=== PATIENT | male | born 1955 | race Caucasian/White ===

== ENCOUNTER 2023-03-26 03:53 | Inpatient (IN) | payer MEDICARE ==
--- NOTE | 2023-03-26 04:08 | ED ---
General Adult HPI - General Stated complaint: Abdominal Pain Time Seen by Provider: 03/26/23 04:04 - History of Present Illness Initial comments: This patient is a 67-year-old man who presents with abdominal pain. He states it is somewhat diffuse however greatest in the right upper quadrant. He states that it feels like for or gassy feeling. He states it feels at times like he needs to have a bowel movement but he has not been able to have one over the past day or so. He has not noted worsening factors. He states that sometimes is better when he holds the right upper quadrant of his abdomen. He also had a component of epigastric pain when EMS had gone to pick him up but this was relieved. No change in urination. No nausea or vomiting Onset/Timin -: week(s) Location: abdomen Quality: other (Full) Consistency: colicky Improves with: none Worsens with: none Associated Symptoms: denies other symptoms - Related Data Home Medications Medication Instructions Recorded Confirmed Multivitamin [Men's Multi-Vitamin] 1 tab PO BID 07/12/14 03/26/23 Furosemide [Lasix] 80 mg PO MOWEFR 12/03/14 03/26/23 Warfarin [Coumadin] 7.5 mg PO HS 12/03/14 03/26/23 allopurinoL [Zyloprim] 150 mg PO BID 10/08/15 03/26/23 Atorvastatin [Lipitor] 80 mg PO HS 03/26/23 03/26/23 Clotrimazole Cream [Lotrimin Cream] 1 applic TOPICAL DAILY PRN 03/26/23 03/26/23 Levothyroxine Sodium [Synthroid] 50 mcg PO DAILY 03/26/23 03/26/23 Losartan [Cozaar] 50 mg PO HS 03/26/23 03/26/23 Magnesium Chloride [Mag64] 64 mg PO HS 03/26/23 03/26/23 Magnesium Chloride [Mag64] 128 tab PO DAILY 03/26/23 03/26/23 Metoprolol Succinate (ER) [Toprol 100 mg PO HS 03/26/23 03/26/23 XL] gemfibroziL [Lopid] 600 mg PO BID 03/26/23 03/26/23 metFORMIN HCL 500 mg PO DAILY 03/26/23 03/26/23 metFORMIN HCL [Glucophage] 1,000 mg PO HS 03/26/23 03/26/23 Previous Rx's Medication Instructions Recorded Aspirin EC [Ecotrin Low Dose] 162 mg PO DAILY #30 tablet. 10/11/14 Omeprazole [PriLOSEC] 40 mg PO DAILY #30 capsule. 10/11/14 Dapagliflozin Propanediol [Farxiga] 10 mg PO DAILY #30 tab 03/31/23 Digoxin [Lanoxin] 62.5 mcg PO DAILY #30 tablet 03/31/23 Metoprolol Succinate (ER) [Toprol 50 mg PO DAILY #30 tab 03/31/23 XL] Potassium Chloride [Klor-Con M20] 20 meq PO DAILY #0 03/31/23 Allergies Allergy/AdvReac Type Severity Reaction Status Date / Time No Known Allergies Allergy Verified 03/26/23 08:29 Review of Systems ROS Statement: Those systems with pertinent positive or pertinent negative responses have been documented in the HPI. ROS Other: All systems not noted in ROS Statement are negative. Constitutional: Denies: fever, chills Respiratory: Reports: dyspnea. Denies: cough Cardiovascular: Reports: palpitations. Denies: chest pain, orthopnea, syncope Gastrointestinal: Reports: abdominal pain, nausea, constipation. Denies: vomiting, diarrhea, melena, hematochezia Genitourinary: Denies: dysuria, hematuria, testicular pain Musculoskeletal: Denies: back pain Skin: Denies: rash Neurological: Denies: headache, weakness Past Medical History Past Medical History: Asthma, Cancer, Heart Failure, Diabetes Mellitus, GERD/Reflux, Hyperlipidemia, Hypertension, Skin Disorder, Thyroid Disorder Additional Past Medical History / Comment(s): colon cancer 2006, pvd, heart murmur,hx hiatal hernia, psoriasis, anemia, hx ulcer, gout History of Any Multi-Drug Resistant Organisms: None Reported Past Surgical History: Bowel Resection, Cardiac Valve Replacement, Cholecystectomy, Heart Catheterization, Hernia Repair, Orthopedic Surgery, Tonsillectomy Additional Past Surgical History / Comment(s): LAURA, surgery for hiatal hernia, marisol carpal tunnel, Past Anesthesia/Blood Transfusion Reactions: No Reported Reaction Past Alcohol Use History: Occasional Additional Past Alcohol Use History / Comment(s): QUIT SMOKING 2006, STARTED SMOKING AGE 15 - Past Family History Father Family Medical History: Hypertension, Myocardial Infarction ([place]) Mother Family Medical History: No Reported History General Exam General appearance: alert, in no apparent distress Head exam: Present: atraumatic, normocephalic Eye exam: Present: normal appearance. Absent: scleral icterus, conjunctival injection ENT exam: Present: mucous membranes dry Neck exam: Present: normal inspection Respiratory exam: Present: normal lung sounds bilaterally. Absent: respiratory distress, wheezes, rales, rhonchi, chest wall tenderness Cardiovascular Exam: Present: normal rhythm, tachycardia, systolic murmur. Absent: diastolic murmur, rubs, gallop GI/Abdominal exam: Present: soft. Absent: distended, tenderness, guarding, rebound, rigid, mass Extremities exam: Present: normal inspection, normal capillary refill. Absent: pedal edema, calf tenderness Back exam: Present: normal inspection. Absent: CVA tenderness (R), CVA t enderness (L) Neurological exam: Present: alert Skin exam: Present: warm, dry, intact, normal color. Absent: rash Course Vital Signs 03/26/23 03/26/23 03/26/23 03:55 05:00 06:31 Temperature 97.7 F Pulse Rate 118 H 120 H 121 H Respiratory 28 H 28 H 24 Rate Blood Pressure 113/94 114/76 133/96 O2 Sat by Pulse 95 96 95 Oximetry 03/26/23 11:48 Temperature Pulse Rate 120 H Respiratory 18 Rate Blood Pressure 104/80 O2 Sat by Pulse 96 Oximetry EKG Findings - EKG Comments: EKG Findings:: Underlying rhythm appears to be sinus tachycardia rate 120 with PVCs - EKG Results: EKG: interpreted by ERMD - Blocks, [place], Hypertrophy, ST Abn: AV and intraventricular conduction: intraventricular conduction delay Medical Decision Making - Medical Decision Making This patient is a 67-year-old man presenting with abdominal pain and some dyspnea. The physical exam does reveal patient is tachycardic and the ECG does appear to show paced rhythm approximately 118 bpm. The patient's device is interrogated and the report is pending at this time. The patient workup includes computed tomography scan of the abdomen that does appear to show some possible duodenitis all others question whether this is resolved previous scan. The labs also reveal elevated troponin though she does have chronic elevated troponin levels going back to her labs. The patient will be admitted to have cardiology consultation regarding the tachycardia that appears to be paced, and to have further evaluation treatment of the suspected duodenitis. Was pt. sent in by a medical professional or institution ([facility], [employer], urgent care, hospital, or residential...) When possible be specific @ -[No] Did you speak to anyone other than the patient for history (EMS, parent, family, police, friend...)? What history was obtained from this source @ -[No] Did you review nursing and triage notes (agree or disagree)? Why? @ -[I reviewed and agree with nursing and triage notes] Were old charts reviewed (outside hosp., previous admission, EMS record, old EKG, old radiological studies, urgent care reports/EKG's, residential records)? Report findings @ -[old charts were reviewed] Differential Diagnosis (chest pain, altered mental status, abdominal pain women, abdominal pain men, vaginal bleeding, weakness, fever, dyspnea, syncope, headache, dizziness, GI bleed, back pain, seizure, CVA, palpatations, mental health, musculoskeletal)? @ -[Differential Abdominal Pain Men: Appendicitis, cholecystitis, diverticulosis, ischemic bowel, pancreatitis, hepatitis, UTI, gastroenteritis, AAA, incarcerated hernia, bowel obstruction, constipation, inflammatory bowel, hepatitis, peptic ulcer disease, splenic infarction, perforated viscus, testicular torsion, this is not meant to be an all-inclusive list EKG interpreted by me (3pts min.). @ -[As above] X-rays interpreted by me (1pt min.). @ -[None done] CT interpreted by me (1pt min.). @ -[None done] U/S interpreted by me (1pt. min.). @ -[None done] What testing was considered but not performed or refused? (CT, X-rays, U/S, labs)? Why? @ -[None] What meds were considered but not given or refused? Why? @ -[None] Did you discuss the management of the patient with other professionals (professionals i.e. [facility], [employer]STALL[employer], lab, RT, psych nurse, social welfare administrator, napkin machine operator, teacher, third officer, catalytic case operator)? Give summary @ -[Is discussed with admitting physician Was smoking cessation discussed for >3mins.? @ -[No] Was critical care preformed (if so, how long)? @ -[No] Were there social determinants of health that impacted care today? How? (Homelessness, low income, unemployed, alcoholism, drug addiction, transportation, low edu. Level, literacy, decrease access to med. care, snf, rehab)? @ -[No] Was there de-escalation of care discussed even if they declined (Discuss DNR or withdrawal of care, Hospice)? DNR status @ -[No] What co-morbidities impacted this encounter? (DM, HTN, Smoking, COPD, CAD, Cancer, CVA, ARF, Chemo, Hep., AIDS, mental health diagnosis, sleep apnea, morbid obesity)? @ -[None] Was patient admitted / discharged? Hospital course, mention meds given and route, prescriptions, significant lab abnormalities, going to OR and other pertinent info. @ -[The patient is admitted to have cardiology consultation given the persistent tachycardia and the above normal range troponin Undiagnosed new problem with uncertain prognosis? @ -[No] Drug Therapy requiring intensive monitoring for toxicity (Heparin, Nitro, Insulin, Cardizem)? @ -[No] Were any procedures done? @ -[No] Diagnosis/symptom? @ -[Acute abdominal pain, suspect due to acute duodenitis Acute tachycardia arrhythmia Elevated troponin I probably secondary to tachyarrhythmia Acute, or Chronic, or Acute on Chronic? @ -[Acute Uncomplicated (without systemic symptoms) or Complicated (systemic symptoms)? @ -[Uncomplicated Side effects of treatment? @ -[No] Exacerbation, Progression, or Severe Exacerbation? @ -[No] Poses a threat to life or bodily function? How? (Chest pain, [place], [place], pneumonia, PE, COPD, DKA, ARF, appy, cholecystitis, CVA, Diverticulitis, Homicidal, Suicidal, threat to staff... and all critical care pts) @ -[Uncertain, pending cardiology evaluation - Lab Data Result diagrams: 03/30/23 11:38 03/31/23 10:43 Lab Results 03/26/23 03/26/23 03/26/23 Range/Units 04:18 04:18 04:18 WBC 13.4 H (3.8-10.6) k/uL RBC 3.70 L (4.30-5.90) m/uL Hgb 11.5 L (13.0-17.5) gm/dL Hct 34.4 L (39.0-53.0) % MCV 92.9 (80.0-100.0) fL MCH 31.1 (25.0-35.0) pg MCHC 33.5 (31.0-37.0) g/dL RDW 13.8 (11.5-15.5) % Plt Count 315 (150-450) k/uL MPV 8.7 Neutrophils % 85 % Lymphocytes % 8 % Monocytes % 4 % Eosinophils % 1 % Basophils % 0 % Neutrophils # 11.4 H (1.3-7.7) k/uL Lymphocytes # 1.1 (1.0-4.8) k/uL Monocytes # 0.6 (0-1.0) k/uL Eosinophils # 0.1 (0-0.7) k/uL Basophils # 0.0 (0-0.2) k/uL PT (9.0-12.0) sec INR (<1.2) D-Dimer (<0.60) mg/L FEU Sodium 138 (137-145) mmol/L Potassium 3.9 (3.5-5.1) mmol/L Chloride 99 (98-107) mmol/L Carbon Dioxide 27 (22-30) mmol/L Anion Gap 12 mmol/L BUN 28 H (9-20) mg/dL Creatinine 1.51 H (0.66-1.25) mg/dL Est GFR (CKD-EPI)AfAm 56 (>60 ml/min/1.73 sqM) Est GFR (CKD-EPI)NonAf 48 (>60 ml/min/1.73 sqM) Glucose 191 H (74-99) mg/dL Plasma Lactic Acid Murtaza (0.7-2.0) mmol/L Calcium 8.9 (8.4-10.2) mg/dL Total Bilirubin 0.4 (0.2-1.3) mg/dL AST 27 (17-59) U/L ALT 20 (4-49) U/L Alkaline Phosphatase 199 H (38-126) U/L Troponin I (0.000-0.034) ng/mL NT-Pro-B Natriuret Pep pg/mL Total Protein 6.9 (6.3-8.2) g/dL Albumin 4.3 (3.5-5.0) g/dL Amylase 72 (30-110) U/L Lipase 108 (23-300) U/L Urine Color Yellow Urine Appearance Clear (Clear) Urine pH 5.5 (5.0-8.0) Ur Specific [place] 1.014 (1.001-1.035) Urine Protein 2+ H (Negative) Urine Glucose (UA) Negative (Negative) Urine Ketones Negative (Negative) Urine Blood Negative (Negative) Urine Nitrite Negative (Negative) Urine Bilirubin Negative (Negative) Urine Urobilinogen <2.0 (<2.0) mg/dL Ur Leukocyte Esterase Negative (Negative) Urine RBC <1 (0-5) /hpf Urine WBC 1 (0-5) /hpf Hyaline Casts 5 H (0-2) /lpf Urine Mucus Rare H (None) /hpf Influenza Type A (PCR) (Not Detectd) Influenza Type B (PCR) (Not Detectd) RSV (PCR) (Not Detectd) SARS-CoV-2 (PCR) (Not Detectd) 03/26/23 03/26/23 03/26/23 Range/Units 04:18 04:18 04:23 WBC (3.8-10.6) k/uL RBC (4.30-5.90) m/uL Hgb (13.0-17.5) gm/dL Hct (39.0-53.0) % MCV (80.0-100.0) fL MCH (25.0-35.0) pg MCHC (31.0-37.0) g/dL RDW (11.5-15.5) % Plt Count (150-450) k/uL MPV Neutrophils % % Lymphocytes % % Monocytes % % Eosinophils % % Basophils % % Neutrophils # (1.3-7.7) k/uL Lymphocytes # (1.0-4.8) k/uL Monocytes # (0-1.0) k/uL Eosinophils # (0-0.7) k/uL Basophils # (0-0.2) k/uL PT (9.0-12.0) sec INR (<1.2) D-Dimer 0.27 (<0.60) mg/L FEU Sodium (137-145) mmol/L Potassium (3.5-5.1) mmol/L Chloride (98-107) mmol/L Carbon Dioxide (22-30) mmol/L Anion Gap mmol/L BUN (9-20) mg/dL Creatinine (0.66-1.25) mg/dL Est GFR (CKD-EPI)AfAm (>60 ml/min/1.73 sqM) Est GFR (CKD-EPI)NonAf (>60 ml/min/1.73 sqM) Glucose (74-99) mg/dL Plasma Lactic Acid Murtaza 1.6 (0.7-2.0) mmol/L Calcium (8.4-10.2) mg/dL Total Bilirubin (0.2-1.3) mg/dL AST (17-59) U/L ALT (4-49) U/L Alkaline Phosphatase (38-126) U/L Troponin I 0.078 H* (0.000-0.034) ng/mL NT-Pro-B Natriuret Pep pg/mL Total Protein (6.3-8.2) g/dL Albumin (3.5-5.0) g/dL Amylase (30-110) U/L Lipase (23-300) U/L Urine Color Urine Appearance (Clear) Urine pH (5.0-8.0) Ur Specific [place] (1.001-1.035) Urine Protein (Negative) Urine Glucose (UA) (Negative) Urine Ketones (Negative) Urine Blood (Negative) Urine Nitrite (Negative) Urine Bilirubin (Negative) Urine Urobilinogen (<2.0) mg/dL Ur Leukocyte Esterase (Negative) Urine RBC (0-5) /hpf Urine WBC (0-5) /hpf Hyaline Casts (0-2) /lpf Urine Mucus (None) /hpf Influenza Type A (PCR) (Not Detectd) Influenza Type B (PCR) (Not Detectd) RSV (PCR) (Not Detectd) SARS-CoV-2 (PCR) (Not Detectd) 03/26/23 03/26/23 03/26/23 Range/Units 04:23 05:00 09:42 WBC (3.8-10.6) k/uL RBC (4.30-5.90) m/uL Hgb (13.0-17.5) gm/dL Hct (39.0-53.0) % MCV (80.0-100.0) fL MCH (25.0-35.0) pg MCHC (31.0-37.0) g/dL RDW (11.5-15.5) % Plt Count (150-450) k/uL MPV Neutrophils % % Lymphocytes % % Monocytes % % Eosinophils % % Basophils % % Neutrophils # (1.3-7.7) k/uL Lymphocytes # (1.0-4.8) k/uL Monocytes # (0-1.0) k/uL Eosinophils # (0-0.7) k/uL Basophils # (0-0.2) k/uL PT 25.0 H (9.0-12.0) sec INR 2.6 H (<1.2) D-Dimer (<0.60) mg/L FEU Sodium (137-145) mmol/L Potassium (3.5-5.1) mmol/L Chloride (98-107) mmol/L Carbon Dioxide (22-30) mmol/L Anion Gap mmol/L BUN (9-20) mg/dL Creatinine (0.66-1.25) mg/dL Est GFR (CKD-EPI)AfAm (>60 ml/min/1.73 sqM) Est GFR (CKD-EPI)NonAf (>60 ml/min/1.73 sqM) Glucose (74-99) mg/dL Plasma Lactic Acid Murtaza (0.7-2.0) mmol/L Calcium (8.4-10.2) mg/dL Total Bilirubin (0.2-1.3) mg/dL AST (17-59) U/L ALT (4-49) U/L Alkaline Phosphatase (38-126) U/L Troponin I (0.000-0.034) ng/mL NT-Pro-B Natriuret Pep 2210 pg/mL Total Protein (6.3-8.2) g/dL Albumin (3.5-5.0) g/dL Amylase (30-110) U/L Lipase (23-300) U/L Urine Color Urine Appearance (Clear) Urine pH (5.0-8.0) Ur Specific [place] (1.001-1.035) Urine Protein (Negative) Urine Glucose (UA) (Negative) Urine Ketones (Negative) Urine Blood (Negative) Urine Nitrite (Negative) Urine Bilirubin (Negative) Urine Urobilinogen (<2.0) mg/dL Ur Leukocyte Esterase (Negative) Urine RBC (0-5) /hpf Urine WBC (0-5) /hpf Hyaline Casts (0-2) /lpf Urine Mucus (None) /hpf Influenza Type A (PCR) Not Detected (Not Detectd) Influenza Type B (PCR) Not Detected (Not Detectd) RSV (PCR) Not Detected (Not Detectd) SARS-CoV-2 (PCR) Not Detected (Not Detectd) 03/26/23 03/26/23 Range/Units 11:06 14:20 WBC (3.8-10.6) k/uL RBC (4.30-5.90) m/uL Hgb (13.0-17.5) gm/dL Hct (39.0-53.0) % MCV (80.0-100.0) fL MCH (25.0-35.0) pg MCHC (31.0-37.0) g/dL RDW (11.5-15.5) % Plt Count (150-450) k/uL MPV Neutrophils % % Lymphocytes % % Monocytes % % Eosinophils % % Basophils % % Neutrophils # (1.3-7.7) k/uL Lymphocytes # (1.0-4.8) k/uL Monocytes # (0-1.0) k/uL Eosinophils # (0-0.7) k/uL Basophils # (0-0.2) k/uL PT (9.0-12.0) sec INR (<1.2) D-Dimer (<0.60) mg/L FEU Sodium (137-145) mmol/L Potassium (3.5-5.1) mmol/L Chloride (98-107) mmol/L Carbon Dioxide (22-30) mmol/L Anion Gap mmol/L BUN (9-20) mg/dL Creatinine (0.66-1.25) mg/dL Est GFR (CKD-EPI)AfAm (>60 ml/min/1.73 sqM) Est GFR (CKD-EPI)NonAf (>60 ml/min/1.73 sqM) Glucose (74-99) mg/dL Plasma Lactic Acid Murtaza (0.7-2.0) mmol/L Calcium (8.4-10.2) mg/dL Total Bilirubin (0.2-1.3) mg/dL AST (17-59) U/L ALT (4-49) U/L Alkaline Phosphatase (38-126) U/L Troponin I 0.066 H* 0.072 H* (0.000-0.034) ng/mL NT-Pro-B Natriuret Pep pg/mL Total Protein (6.3-8.2) g/dL Albumin (3.5-5.0) g/dL Amylase (30-110) U/L Lipase (23-300) U/L Urine Color Urine Appearance (Clear) Urine pH (5.0-8.0) Ur Specific [place] (1.001-1.035) Urine Protein (Negative) Urine Glucose (UA) (Negative) Urine Ketones (Negative) Urine Blood (Negative) Urine Nitrite (Negative) Urine Bilirubin (Negative) Urine Urobilinogen (<2.0) mg/dL Ur Leukocyte Esterase (Negative) Urine RBC (0-5) /hpf Urine WBC (0-5) /hpf Hyaline Casts (0-2) /lpf Urine Mucus (None) /hpf Influenza Type A (PCR) (Not Detectd) Influenza Type B (PCR) (Not Detectd) RSV (PCR) (Not Detectd) SARS-CoV-2 (PCR) (Not Detectd) Disposition Clinical Impression: Elevated troponin, Abdominal pain, Duodenitis Disposition: ADMITTED IP TO THIS HOSP
[2023-03-26 04:41] LABS: Basophils % (A) 0 %; Eosinophils # (A) 0.1 k/uL (0-0.7); Eosinophils % (A) 1 %; HCT 34.4 % (39.0-53.0); HGB 11.5 gm/dL (13.0-17.5); Lymphocytes # (A) 1.1 k/uL (1.0-4.8); Lymphocytes % (A) 8 %; MCH 31.1 pg (25.0-35.0); MCHC 33.5 g/dL (31.0-37.0); MCV 92.9 fL (80.0-100.0); Mean Platelet Volume 8.7; Monocytes # (A) 0.6 k/uL (0-1.0); Monocytes % (A) 4 %; Neutrophils # (A) 11.4 k/uL (1.3-7.7); Neutrophils % (A) 85 %; Platelet Count 315 k/uL (150-450); RDW 13.8 % (11.5-15.5); WBC 13.4 k/uL (3.8-10.6)
[2023-03-26 04:54] LABS: Albumin 4.3 g/dL (3.5-5.0); Calcium 8.9 mg/dL (8.4-10.2); Potassium 3.9 mmol/L (3.5-5.1); Total Bilirubin 0.4 mg/dL (0.2-1.3); Total Protein 6.9 g/dL (6.3-8.2)
--- NOTE | 2023-03-26 05:17 | XR ---
EXAMINATION TYPE: XR chest 2V DATE OF EXAM: 03/26/2023 COMPARISON: Chest x-ray November 27, 2015 HISTORY: Dyspnea. TECHNIQUE: Frontal and lateral views of the chest are obtained. FINDINGS: There is patchy bibasilar opacities. Persistent cardiomegaly with single lead pacemaker/de fibrillator. Overlying sternal wires redemonstrated. The osseous structures are intact. IMPRESSION: Cardiomegaly with patchy bibasilar opacities favoring atelectasis is redemonstrated.
--- NOTE | 2023-03-26 07:06 | CT ---
EXAMINATION TYPE: CT abdomen pelvis wo con DATE OF EXAM: 03/26/2023 HISTORY: Abdominal pain with pressure x 1 week. No change in bowel habits CT DLP: 1070.7 mGycm. Automated Exposure Control for Dose Reduction was Utilized. TECHNIQUE: CT scan of the abdomen and pelvis is performed without oral or IV contrast. COMPARISON: Prior CT July 12, 2014 FINDINGS: Within the limitations of a non-contrast study, the following observations are made. LUNG BASES: Mild cardiomegaly with right-sided pacemaker or defibrillator lead is now present. Calcif ication at level of the mitral valve is again seen. LIVER/GB: Cholecystectomy clips are redemonstrated. Mild hepatomegaly redemonstrated. PANCREAS: No significant abnormality is seen. SPLEEN: No significant abnormality is seen. ADRENALS: No significant abnormality is seen. KIDNEYS: No renal calculi or hydronephrosis is seen bilaterally. No intraluminal calculus in the blad stefany. BOWEL: Slightly suboptimal evaluation without enteric contrast. No suspicious small or large bowel di latation. Sigmoid colonic diverticula. No CT evidence for acute diverticulitis. Surgical change from proximal partial colectomy and small bowel anastomosis is redemonstrated. GENITAL ORGANS: No gross abnormality seen. LYMPH NODES: No greater than 1cm abdominal or pelvic lymph nodes are appreciated. OSSEOUS STRUCTURES: No significant abnormality is seen. OTHER: Moderate to severe calcified plaque of the aorta extends into branch vessels. Persistent ill-defined fluid and fat stranding adjacent to second portion of duodenal sweep has simil ar appearance to prior CT. IMPRESSION: No bowel obstruction. Possible focal inflammatory change or duodenitis. Differential incl udes infectious and/or inflammatory etiologies. Correlate clinically. No acute findings otherwise see n on noncontrast CT.
[2023-03-26] MEDS ORDERED: NITROGLYCERIN SL TABS 0.4 MG TAB SUBLINGUAL PRN (08:24)
[2023-03-26] MEDS: SODIUM CHLORIDE 0.9% 1,000 ML IV SCH (09:04)
[2023-03-26] MEDS ORDERED: ASPIRIN 81 MG PO SCH (09:30)
[2023-03-26] MEDS ORDERED: FENOFIBRATE 160 MG TAB PO SCH (09:30)
[2023-03-26] MEDS ORDERED: FUROSEMIDE 80 MG TAB PO SCH (09:30)
[2023-03-26] MEDS: MAGNESIUM OXIDE 400 MG TAB PO SCH ×3 (09:39→22:05)
[2023-03-26] MEDS: allopurinoL 100 MG TAB PO SCH ×2 (09:40→22:05)
[2023-03-26] MEDS: PANTOPRAZOLE 40 MG TABLET PO SCH (09:41)
[2023-03-26] MEDS: metFORMIN 500 MG TAB PO SCH ×2 (09:42→22:05)
[2023-03-26] MEDS: LEVOTHYROXINE 50 MCG TAB PO SCH (09:42)
[2023-03-26] MEDS: POTASSIUM CHLORIDE ER 20 MEQ TAB.ER PO SCH ×2 (09:43→22:06)
[2023-03-26] MEDS: MULTIVITAMINS, THERA 1 EACH TAB PO SCH ×2 (09:43→22:06)
[2023-03-26 10:04] LABS: INR 2.6 (<1.2)
[2023-03-26 11:40] LABS: Appearance,Urine Clear (Clear); Bilirubin,Urine Negative (Negative); Blood,Urine Negative (Negative); Color,Urine Yellow; Glucose,Urine (UA) Negative (Negative); Hyaline Casts,Urine 5 /lpf (0-2); Ketones,Urine Negative (Negative); Leukocyte Esterase,Urine Negative (Negative); Mucus,Urine Rare /hpf; Nitrite,Urine Negative (Negative); PH, Urine 5.5 (5.0-8.0); Protein,Urine 2+ (Negative); RBC,Urine <1 /hpf (0-5); Specific Gravity,Urine 1.014 (1.001-1.035); Urobilinogen,Urine <2.0 mg/dL (<2.0); WBC,Urine 1 /hpf (0-5)
[2023-03-26] MEDS ORDERED: METOPROLOL SUCCINATE (ER) 50 MG TAB.ER.24H PO STA (12:22)
[2023-03-26] MEDS ORDERED: FUROSEMIDE 10 MG/ML 4 ML VIAL IV SCH (12:30)
--- NOTE | 2023-03-26 12:30 | P.CRDCN ---
History of Present Illness Consult date: 03/26/23 History of present illness: HISTORY OF PRESENT ILLNESS: This is a 67-year-old male with a past medical history significant for permanent atrial fibrillation, hypertension, hyperlipidemia, peripheral arterial disease with previous intervention of the left leg, aortic stenosis and regurgitation with previous aortic valve replacement, congestive heart failure, and cardiomyopathy. Patient follows in the office with Dr. Mendoza. We have been asked to see the patient in consultation for elevated troponins. Patient examined at the bedside. Patient presented to the hospital with a chief complaint of abdominal pain. He also reports increased shortness of breath with exertion. He states he is usually short of breath but it is worse than normal. He reports mild lower extremity edema, usually worse on the left. No chest pain or pressure. No nausea or vomiting. Reports diarrhea, which is chronic for patient. No dizziness or palpitations. It is noted that the patient was notified by the cardiology office via telephone on 03/23/2023 regarding an episode of atrial fibrillation with RVR that was reported from his device on 03/19/2023. The patient denied feeling anything at that time. He told the cardiology office he was moving heavy objects and doing yard work and felt weak and short of breath. The patient received ATP therapy. * EKG reveals atrial fibrillation with RVR * Chest xray cardiomegaly with patchy bibasilar opacities favoring atelectasis * CT abdomen and pelvis revealed no evidence of bowel ejection. Possible focal inflammatory changes or duodenitis. Differential includes infectious and/or inflammatory etiologies. No acute findings otherwise seen on noncontrast CT. * Laboratory data: WBC 13.4. Hemoglobin 11.5. Blood count 315. D-dimer 0.27. INR 2.6. Sodium 138. Potassium 3.9. BUN 28. Creatinine 1.51. Troponin 0. 078. ProBNP 2210. * Current home cardiac medications include Lasix 80 mg Wednesday, losartan 50 mg at night, Zaroxolyn 5 mg at night, aspirin 162 mg daily, warfarin 7.5 mg at night, metoprolol succinate 100 mg at night, Lipitor 80 mg at night, Lopid 600 mg twice a day * Most recent echocardiogram obtained in October 2022 revealed ejection fraction 30-35% with AV prosthesis noted, moderate MR, mild TR * Cardiac catheterization history: 2013 revealing mild nonobstructive coronary artery disease REVIEW OF SYSTEMS: At the time of my exam: CONSTITUTIONAL: Denies fever or chills. HEENT: Denies blurred vision, vision changes, or eye pain. Denies hemoptysis CARDIOVASCULAR: Denies chest pain. Denies orthopnea. Denies PND. Denies palpitations RESPIRATORY: Denies shortness of breath. GASTROINTESTINAL: Denies abdominal pain. Denies nausea or vomiting. HEMATOLOGIC: Denies bleeding disorders. GENITOURINARY: Denies any blood in urine. SKIN: Denies pruitis. Denies rash. PHYSICAL EXAM: VITAL SIGNS: Reviewed. GENERAL: Well-developed in no acute distress. HEENT: Head is normocephalic. Pupils are equal, round. Sclerae anicteric. Mucous membranes of the mouth are moist. Neck supple. No JVD or thyromegaly LUNGS: Respirations even and unlabored. Lungs diminished at the bases. HEART: Tachycardic. Irregular rate and rhythm. S1 and S2 heard. Soft systolic murmur noted. ABDOMEN: Soft. Nondistended. Nontender. EXTREMITIES: Normal range of motion. No clubbing or cyanosis. Peripheral pulses intact. Minimal lower extremity edema NEUROLOGIC: Awake and alert. Oriented x 3. ASSESSMENT: Abdominal pain Leukocytosis Acute kidney injury Acute on chronic congestive heart failure with reduced EF Abnormal troponin, not suggestive of ACS Permanent atrial fibrillation with RVR on admission History of aortic stenosis with bioprosthetic aortic valve replacement Nonischemic cardiomyopathy, 3035% Mild nonobstructive coronary artery disease, per cardiac catheterization in 2013 Peripheral arterial disease with previous intervention of left lower extremity Hypertension Hyperlipidemia Diabetes PLAN: Obtain 2D echo to assess cardiac structure and function Begin IV lasix 40mg IV Q12 hours for 24 hours Daily weights, accurate I&O, and monitoring of kidney function Discontinue aspirin Continue Coumadin. Monitor INR Given additional dose of metoprolol succinate 50 mg 1 now Continue telemetry monitoring Further recommendations pending patient's course Nurse practitioner note has been reviewed by physician. Signing provider agrees with the documented findings, assessment, and plan of care. Past Medical History Past Medical History: Asthma, Cancer, Heart Failure, Diabetes Mellitus, GERD/Reflux, Hyperlipidemia, Hypertension, Skin Disorder, Thyroid Disorder Additional Past Medical History / Comment(s): colon cancer 2007, pvd, heart murmur,hx hiatal hernia, psoriasis, anemia, hx ulcer, gout History of Any Multi-Drug Resistant Organisms: None Reported Past Surgical History: Bowel Resection, Cardiac Valve Replacement, Cholecystectomy, Heart Catheterization, Hernia Repair, Orthopedic Surgery, Tonsillectomy Additional Past Surgical History / Comment(s): LAURA, surgery for hiatal hernia, marisol carpal tunnel, Past Anesthesia/Blood Transfusion Reactions: No Reported Reaction Past Alcohol Use History: Occasional Additional Past Alcohol Use History / Comment(s): QUIT SMOKING 2006, STARTED SMOKING AGE 15 - Past Family History Father Family Medical History: Hypertension, Myocardial Infarction ([place]) Mother Family Medical History: No Reported History Medications and Allergies Home Medications Medication Instructions Recorded Confirmed Type Multivitamin [Men's Multi-Vitamin] 1 tab PO BID 07/12/14 03/26/23 History Aspirin EC [Ecotrin Low Dose] 162 mg PO DAILY #30 tablet. 10/11/14 03/26/23 Rx Omeprazole [PriLOSEC] 40 mg PO DAILY #30 capsule. 10/11/14 03/26/23 Rx Furosemide [Lasix] 80 mg PO MOWEFR 12/03/14 03/26/23 History Warfarin [Coumadin] 7.5 mg PO HS 12/03/14 03/26/23 History allopurinoL [Zyloprim] 150 mg PO BID 10/08/15 03/26/23 History Atorvastatin [Lipitor] 80 mg PO HS 03/26/23 03/26/23 History Clotrimazole Cream [Lotrimin Cream] 1 applic TOPICAL DAILY PRN 03/26/23 03/26/23 History Levothyroxine Sodium [Synthroid] 50 mcg PO DAILY 03/26/23 03/26/23 History Losartan [Cozaar] 50 mg PO HS 03/26/23 03/26/23 History Magnesium Chloride [Mag64] 64 mg PO HS 03/26/23 03/26/23 History Magnesium Chloride [Mag64] 128 tab PO DAILY 03/26/23 03/26/23 History Metoprolol Succinate (ER) [Toprol 100 mg PO HS 03/26/23 03/26/23 History Xl] Potassium Chloride [Klor-Con M20] 20 meq PO BID 03/26/23 03/26/23 History gemfibroziL [Lopid] 600 mg PO BID 03/26/23 03/26/23 History metFORMIN HCL 500 mg PO DAILY 03/26/23 03/26/23 History metFORMIN HCL [Glucophage] 1,000 mg PO HS 03/26/23 03/26/23 History metOLazone 5 mg PO HS 03/26/23 03/26/23 History Allergies Allergy/AdvReac Type Severity Reaction Status Date / Time No Known Allergies Allergy Verified 03/26/23 08:29 Physical Exam Vitals: Vital Signs Temp Pulse Resp BP Pulse Ox 03/26/23 06:31 121 H 24 133/96 95 03/26/23 05:00 120 H 28 H 114/76 96 03/26/23 03:55 97.7 F 118 H 28 H 113/94 95 Intake and Output 03/25/23 03/26/23 03/26/23 22:59 06:59 14:59 Other: Weight 110.677 kg Results 03/26/23 04:18 03/26/23 04:18 Cardiac Enzymes 03/26/23 03/26/23 Range/Units 04:18 04:18 AST 27 (17-59) U/L Troponin I 0.078 H* (0.000-0.034) ng/mL Coagulation 03/26/23 Range/Units 09:42 PT 25.0 H (9.0-12.0) sec CBC 03/26/23 Range/Units 04:18 WBC 13.4 H (3.8-10.6) k/uL RBC 3.70 L (4.30-5.90) m/uL Hgb 11.5 L (13.0-17.5) gm/dL Hct 34.4 L (39.0-53.0) % Plt Count 315 (150-450) k/uL Comprehensive Metabolic Panel 03/26/23 Range/Units 04:18 Sodium 138 (137-145) mmol/L Potassium 3.9 (3.5-5.1) mmol/L Chloride 99 (98-107) mmol/L Carbon Dioxide 27 (22-30) mmol/L BUN 28 H (9-20) mg/dL Creatinine 1.51 H (0.66-1.25) mg/dL Glucose 191 H (74-99) mg/dL Calcium 8.9 (8.4-10.2) mg/dL AST 27 (17-59) U/L ALT 20 (4-49) U/L Alkaline Phosphatase 199 H (38-126) U/L Total Protein 6.9 (6.3-8.2) g/dL Albumin 4.3 (3.5-5.0) g/dL Current Medications Generic Name Dose Route Start Last Admin Trade Name Freq PRN Reason Stop Dose Admin Allopurinol 150 mg 03/26/23 09:30 03/26/23 09:40 Allopurinol 100 Mg Tab PO 150 mg BID ANDREW Administration Aspirin 162 mg 03/26/23 09:30 03/26/23 09:41 Aspirin 81 Mg PO Not Given DAILY [facility] Atorvastatin Calcium 80 mg 03/26/23 21:00 Atorvastatin 80 Mg Tab PO HS [facility] Fenofibrate 160 mg 03/26/23 09:30 03/26/23 09:42 Fenofibrate 160 Mg Tab PO 160 mg DAILY ANDREW Administration Furosemide 80 mg 03/26/23 09:30 03/26/23 09:38 Furosemide 80 Mg Tab PO 80 mg MoWeFr@0900 ANDREW Administration Sodium Chloride 1,000 mls @ 20 mls/hr 03/26/23 08:30 03/26/23 09:04 Saline 0.9% IV 20 mls/hr .Q24H ANDREW Administration Levothyroxine Sodium 50 mcg 03/26/23 09:30 03/26/23 09:42 Levothyroxine 50 Mcg Tab PO 50 mcg DAILY@0630 ANDREW Administration Losartan Potassium 50 mg 03/26/23 21:00 Losartan 50 Mg Tab PO HS [facility] Magnesium Oxide 400 mg 03/26/23 21:00 Magnesium Oxide 400 Mg Tab PO HS [facility] Magnesium Oxide 400 mg 03/26/23 09:30 03/26/23 09:43 Magnesium Oxide 400 Mg Tab PO 400 mg DAILY ANDREW Administration Metformin HCl 1,000 mg 03/26/23 21:00 Metformin 500 Mg Tab PO HS [facility] Metformin HCl 500 mg 03/26/23 09:30 03/26/23 09:42 Metformin 500 Mg Tab PO 500 mg DAILY ANDREW Administration Metolazone 5 mg 03/26/23 21:00 Metolazone 5 Mg Tab PO HS [facility] Metoprolol Succinate 100 mg 03/26/23 21:00 Metoprolol Succinate (Er) 100 Mg Tab.Er.24h PO HS [facility] Multivitamins 1 each 03/26/23 09:30 03/26/23 09:43 Multivitamins, Thera 1 Each Tab PO 1 each BID ANDREW Administration Nitroglycerin 0.4 mg 03/26/23 08:24 Nitroglycerin Sl Tabs 0.4 Mg Tab SUBLINGUAL Q5M PRN Chest Pain Pantoprazole Sodium 40 mg 03/26/23 09:30 03/26/23 09:41 Pantoprazole 40 Mg Tablet PO 40 mg AC-[id number] ANDREW Administration Potassium Chloride 20 meq 03/26/23 09:30 03/26/23 09:43 Potassium Chloride Er 20 Meq Tab.Er PO 20 meq BID ANDREW Administration Warfarin Sodium 7.5 mg 03/26/23 21:00 Warfarin 7.5 Mg Tab PO HS [facility] Protocol Intake and Output 03/25/23 03/26/23 03/26/23 22:59 06:59 14:59 Other: Weight 110.677 kg 03/26/23 04:18 03/26/23 04:18
--- NOTE | 2023-03-26 14:36 | P.HPIM ---
History of Present Illness H&P Date: 03/26/23 Chief Complaint: Short of breath This is a pleasant 67-year-old patient who follows Dr. Pelaez. Chronic stable medical conditions include CAD, CHF, diabetes, GERD, hypertension, hyperlipidemia, hypothyroid, colon cancer treated with resection and radiation treatment, hiatal hernia, psoriatic assess, gout,. Patient presents for about one week getting creasing short of breath. No fever no chills. No cough. Patient has chronic left lower extremity swelling. Also has had some abdominal pain for a week. Bowel movement every day. Decreased appetite. Permanent pacemaker was noted in the ER to be having increased heart rate. Pacemaker check was ordered. No chest pain. No dizziness no lightheadedness. Review of systems: GEN.: Tired, decreased appetite EYES: None HEENT: None NECK: None RESPIRATORY: As above CARDIOVASCULAR: As above GASTROINTESTINAL: None GENITOURINARY: None MUSCULOSKELETAL: None LYMPHATICS: None HEMATOLOGICAL: None PSYCHIATRY: None NEUROLOGICAL: None Past medical history to include: COPD, CAD, CHF, diabetes, GERD, hypertension, hyperlipidemia, psoriasis, thyroid disorder, colon cancer treated with surgery and radiation, PAD, sodium is this, hiatal hernia, peptic ulcer disease, gout, heart valve replacement 2015, pacemaker Social history: Lives alone. Smoked for about 35 years. Stopped in 2006. Alcohol occasionally. Physical examination: VITAL SIGNS: 97.7, 120, 28, 130/94, 95% on 2 L upon presentation GENERAL: BMI 33.1, declining weight awake not in distress. EYES: Pupils equal. Conjunctiva normal. HEENT: External appearance of nose and ears normal, oral cavity grossly normal. NECK: JVD not raised; masses not palpable. HEART: First and second heart sounds are normal; no edema. LUNGS: Respiratory rate normal; clear to auscultation. ABDOMEN: Soft, nontender, liver spleen not palpable, no masses palpable. PSYCH: Alert and oriented x3; mood and affect normal. MUSCULOSKELETAL:No Clubbing/cyanosis;muscles-grossly intact NEUROLOGICAL: Cranial nerves grossly intact; no facial asymmetry, power and sensation grossly intact. LYMPHATICS: No lymph nodes palpable in the axilla and neck INVESTIGATIONS, reviewed in the clinical context: White count 13.4 hemoglobin 11.5 platelets 315 sodium 138 potassium 3.9 BUN 28 creatinine 1.51 Troponin I 0.078, 0.066 ProBNP 2210 UA: Protein 2+, Influenza type A, B, RSV, COVID-19: Not detected EKG tracing personally reviewed by me-atrial flutter/tachycardia with a heart rate of 120 Chest x-ray film personally reviewed by me-cardiomegaly. CT abdomen pelvis: No bowel obstruction. Possible inflammatory changes were duodenitis. Assessment and plan: -Atrial fibrillation/atrial tachycardia, uncontrolled with the patient with pacemaker Precipitating CHF Additional dose of Lopressor given by cardiology. Cardiology consulted. Telemetry. -Acute on chronic congestive heart failure. EF not known IV Lasix. Pending 2-D echo -Chronic kidney disease stage III likely nephrosclerosis Patient's creatinine was 1.86 in 2016 -Troponin leak likely from uncontrolled atrial arrhythmia. Acute coronary syndrome unlikely in the setting of CK D -Hypothyroid Synthroid 50 g -Coumadin monitoring Follow with pharmacy -GERD Prilosec 40 mg -Chronic gout Allopurinol. -Hyperlipidemia Lipitor, Lopid -Diabetes mellitus type 2 on oral hypoglycemic Glucophage. Follow Accu-Cheks with sliding scale Given the complexity and severity of patient's condition expect the patient to be in the hospital at least for 2 overnights Discussed with patient Past Medical History Past Medical History: Asthma, Cancer, Heart Failure, Diabetes Mellitus, GERD/Reflux, Hyperlipidemia, Hypertension, Skin Disorder, Thyroid Disorder Additional Past Medical History / Comment(s): colon cancer 2007, pvd, heart murmur,hx hiatal hernia, psoriasis, anemia, hx ulcer, gout History of Any Multi-Drug Resistant Organisms: None Reported Past Surgical History: Bowel Resection, Cardiac Valve Replacement, Cholecystectomy, Heart Catheterization, Hernia Repair, Orthopedic Surgery, To nsillectomy Additional Past Surgical History / Comment(s): LAURA, surgery for hiatal hernia, marisol carpal tunnel, Past Anesthesia/Blood Transfusion Reactions: No Reported Reaction Past Alcohol Use History: Occasional Additional Past Alcohol Use History / Comment(s): QUIT SMOKING 2006, STARTED SMOKING AGE 15 - Past Family History Father Family Medical History: Hypertension, Myocardial Infarction ([place]) Mother Family Medical History: No Reported History Medications and Allergies Home Medications Medication Instructions Recorded Confirmed Type Multivitamin [Men's Multi-Vitamin] 1 tab PO BID 07/12/14 03/26/23 History Aspirin EC [Ecotrin Low Dose] 162 mg PO DAILY #30 tablet. 10/11/14 03/26/23 Rx Omeprazole [PriLOSEC] 40 mg PO DAILY #30 capsule. 10/11/14 03/26/23 Rx Furosemide [Lasix] 80 mg PO MOWEFR 12/03/14 03/26/23 History Warfarin [Coumadin] 7.5 mg PO HS 12/03/14 03/26/23 History allopurinoL [Zyloprim] 150 mg PO BID 10/08/15 03/26/23 History Atorvastatin [Lipitor] 80 mg PO HS 03/26/23 03/26/23 History Clotrimazole Cream [Lotrimin Cream] 1 applic TOPICAL DAILY PRN 03/26/23 03/26/23 History Levothyroxine Sodium [Synthroid] 50 mcg PO DAILY 03/26/23 03/26/23 History Losartan [Cozaar] 50 mg PO HS 03/26/23 03/26/23 History Magnesium Chloride [Mag64] 64 mg PO HS 03/26/23 03/26/23 History Magnesium Chloride [Mag64] 128 tab PO DAILY 03/26/23 03/26/23 History Metoprolol Succinate (ER) [Toprol 100 mg PO HS 03/26/23 03/26/23 History Xl] Potassium Chloride [Klor-Con M20] 20 meq PO BID 03/26/23 03/26/23 History gemfibroziL [Lopid] 600 mg PO BID 03/26/23 03/26/23 History metFORMIN HCL 500 mg PO DAILY 03/26/23 03/26/23 History metFORMIN HCL [Glucophage] 1,000 mg PO HS 03/26/23 03/26/23 History metOLazone 5 mg PO HS 03/26/23 03/26/23 History Allergies Allergy/AdvReac Type Severity Reaction Status Date / Time No Known Allergies Allergy Verified 03/26/23 08:29 Physical Exam Vitals: Vital Signs Temp Pulse Resp BP Pulse Ox 03/26/23 06:31 121 H 24 133/96 95 03/26/23 05:00 120 H 28 H 114/76 96 03/26/23 03:55 97.7 F 118 H 28 H 113/94 95 Intake and Output 03/25/23 03/26/23 03/26/23 22:59 06:59 14:59 Other: Weight 110.677 kg Results CBC & Chem 7: 03/26/23 04:18 03/26/23 04:18 Labs: Abnormal Lab Results - Last 24 Hours (Table) 03/26/23 03/26/23 03/26/23 Range/Units 04:18 04:18 04:18 WBC 13.4 H (3.8-10.6) k/uL RBC 3.70 L (4.30-5.90) m/uL Hgb 11.5 L (13.0-17.5) gm/dL Hct 34.4 L (39.0-53.0) % Neutrophils # 11.4 H (1.3-7.7) k/uL BUN 28 H (9-20) mg/dL Creatinine 1.51 H (0.66-1.25) mg/dL Glucose 191 H (74-99) mg/dL Alkaline Phosphatase 199 H (38-126) U/L Troponin I 0.078 H* (0.000-0.034) ng/mL
[2023-03-26 16:43] LABS: Glucose,Whole Blood 157 mg/dL (70-110)
--- NOTE | 2023-03-26 17:35 | CA ---
Transthoracic Echo Report Name: Behzad Dos Santos Age: 67 Gender: M : 1955 Exam Date: 03/26/2023 14:43 Exam Location: [facility] Ht (in): 72 Wt (lb): 244 Ordering Physician: Nya Garcia Attending/Referring Phys: [id number], [place] [employer] Brennan Ko Procedure CPT: Indications: LV function, elevated trop Cardiac Hx: Technical Quality: Very technically difficult study Contrast 1: Agitated Saline Total Dose (mL): 10 Contrast 2: Lumason Total Dose (mL): 5 MEASUREMENTS (Male / Female) Normal Values 2D ECHO LV Diastolic Diameter PLAX 4.6 cm 4.2 - 5.9 / 3.9 - 5.3 cm LV Systolic Diameter PLAX 4.5 cm IVS Diastolic Thickness 1.6 cm 0.6 - 1.0 / 0.6 - 0.9 cm LVPW Diastolic Thickness 1.3 cm 0.6 - 1.0 / 0.6 - 0.9 cm LV Relative Wall Thickness 0.6 RV Internal Dim ED PLAX 2.9 cm LVOT Diameter 2.0 cm Aortic Root Diameter 3.5 cm LA Systolic Diameter LX 3.5 cm 3.0 - 4.0 / 2.7 - 3.8 cm LV Diastolic Volume MOD BP 138.0 cm??? 67 - 155 / 56 - 104 cm??? LV Systolic Volume MOD BP 118.9 cm??? 22 - 58 / 19 - 49 cm??? LV Ejection Fraction MOD BP 13.8 % >= 55 % LV Diastolic Volume MOD 4C 157.4 cm??? LV Systolic Volume MOD 4C 136.6 cm??? LV Ejection Fraction MOD 4C 13.2 % LV Diastolic Length 4C 8.1 cm LV Systolic Length 4C 7.6 cm LV Diastolic Volume MOD 2C 111.1 cm??? LV Systolic Volume MOD 2C 96.6 cm??? LV Ejection Fraction MOD 2C 13.1 % LV Diastolic Length 2C 7.4 cm LV Systolic Length 2C 7.1 cm LA Volume 77.9 cm??? 18 - 58 / 22 - 52 cm??? Ascending Aorta Diameter 3.1 cm DOPPLER AV Peak Velocity 190.6 cm/s AV Peak Gradient 14.5 mmHg AV Mean Velocity 160.2 cm/s AV Mean Gradient 10.9 mmHg AV Velocity Time Integral 28.5 cm LVOT Peak Velocity 69.7 cm/s LVOT Peak Gradient 1.9 mmHg AV Area Cont Eq pk 1.1 cm??? MV Peak Velocity 131.5 cm/s MV Peak Gradient 6.9 mmHg MV Mean Velocity 56.5 cm/s MV Mean Gradient 1.9 mmHg MV Velocity Time Integral 31.5 cm MR Peak Velocity 371.1 cm/s MR Peak Gradient 55.1 mmHg MV E' Velocity 6.9 cm/s TR Peak Velocity 252.8 cm/s TR Peak Gradient 25.6 mmHg Right Ventricular Systolic Press 30.6 mmHg PV Peak Velocity 71.5 cm/s PV Peak Gradient 2.0 mmHg FINDINGS Left Ventricle Left ventricular ejection fraction is estimated at 15-20 %. Mild left ventricular dilatation. Right Ventricle Normal right ventricular size. Pacemaker wire noted. Right Atrium Normal right atrial size. Left Atrium Normal left atrial size. LA Volume Index= 34ml/m2 Mitral Valve Mild posterior MAC. Mild to moderate MR. Aortic Valve Prosthetic AV. Tricuspid Valve Tricuspid valve not well visualized. Mild TR. RVSP=32mmhg. Pulmonic Valve Pulmonic valve not well visualized. Pericardium Normal pericardium. Aorta Aortic root and proximal ascending aorta not well visualized. CONCLUSIONS Severe LV systolic dysfunction Mild to moderate mitral regurgitation Normally functioning bioprosthetic valve in aortic position Previewed by: Dr. Philippe Mendoza MD (Electronically Signed) Final Date: 26 March 2023 17:34
[2023-03-26 20:31] LABS: Glucose,Whole Blood 198 mg/dL (70-110)
[2023-03-26] MEDS: METOPROLOL SUCCINATE (ER) 100 MG TAB.ER.24H PO SCH (22:05)
[2023-03-26] MEDS: LOSARTAN 50 MG TAB PO SCH (22:05)
[2023-03-26] MEDS: WARFARIN 7.5 MG TAB PO SCH (22:05)
[2023-03-26] MEDS: ATORVASTATIN 80 MG TAB PO SCH (22:06)
[2023-03-26] MEDS: metOLazone 5 MG TAB PO SCH (22:55)
[2023-03-27] MEDS: LEVOTHYROXINE 50 MCG TAB PO SCH (05:49)
[2023-03-27] MEDS: PANTOPRAZOLE 40 MG TABLET PO SCH (05:49)
[2023-03-27] MEDS: FUROSEMIDE 10 MG/ML 4 ML VIAL IV SCH ×2 (05:49→17:21)
[2023-03-27 06:19] LABS: Glucose,Whole Blood 173 mg/dL (70-110)
[2023-03-27 06:51] LABS: Basophils % (A) 0 %; Eosinophils # (A) 0.1 k/uL (0-0.7); Eosinophils % (A) 2 %; HCT 33.1 % (39.0-53.0); HGB 11.2 gm/dL (13.0-17.5); Lymphocytes # (A) 1.1 k/uL (1.0-4.8); Lymphocytes % (A) 14 %; MCH 31.5 pg (25.0-35.0); MCHC 33.8 g/dL (31.0-37.0); Mean Platelet Volume 9.2; Monocytes # (A) 0.4 k/uL (0-1.0); Monocytes % (A) 5 %; Neutrophils # (A) 6.4 k/uL (1.3-7.7); Neutrophils % (A) 77 %; Platelet Count 255 k/uL (150-450); RBC 3.56 m/uL (4.30-5.90); RDW 13.9 % (11.5-15.5); WBC 8.3 k/uL (3.8-10.6)
[2023-03-27 06:56] LABS: INR 2.4 (<1.2); Prothrombin Time 23.3 sec (9.0-12.0)
[2023-03-27 07:17] LABS: African American GFR (CKD) 49 (>60 ml/min/1.73 sqM); Anion Gap 12 mmol/L; Blood Urea Nitrogen 35 mg/dL (9-20); Calcium 9.1 mg/dL (8.4-10.2); Carbon Dioxide 28 mmol/L (22-30); Chloride 96 mmol/L (98-107); Glucose 173 mg/dL (74-99); Non-African American GFR(CKD) 43 (>60 ml/min/1.73 sqM); Potassium 3.4 mmol/L (3.5-5.1); Sodium 136 mmol/L (137-145)
[2023-03-27] MEDS: MAGNESIUM OXIDE 400 MG TAB PO SCH ×2 (08:16→21:31)
[2023-03-27] MEDS: MULTIVITAMINS, THERA 1 EACH TAB PO SCH ×2 (08:16→21:30)
[2023-03-27] MEDS: metFORMIN 500 MG TAB PO SCH ×2 (08:16→21:30)
[2023-03-27] MEDS: POTASSIUM CHLORIDE ER 20 MEQ TAB.ER PO SCH ×2 (08:16→21:31)
[2023-03-27] MEDS: allopurinoL 100 MG TAB PO SCH ×2 (08:17→21:31)
[2023-03-27] MEDS ORDERED: ASPIRIN 325 MG TAB PO SCH (09:00)
[2023-03-27] MEDS ORDERED: ASPIRIN 81 MG PO SCH (09:00)
[2023-03-27 11:58] LABS: Glucose,Whole Blood 170 mg/dL (70-110)
[2023-03-27] MEDS: SODIUM CHLORIDE 0.9% 1,000 ML IV SCH (12:32)
--- NOTE | 2023-03-27 15:28 | P.PN ---
Progress Note - Text Progress Note Date: 03/27/23 Chief Complaint: Short of breath This is a pleasant 67-year-old patient who follows Dr. Pelaez. Chronic stable medical conditions include CAD, CHF, diabetes, GERD, hypertension, hyperlipidemia, hypothyroid, colon cancer treated with resection and radiation treatment, hiatal hernia, psoriatic assess, gout,. Patient presents for about one week getting creasing short of breath. No fever no chills. No cough. Patient has chronic left lower extremity swelling. Also has had some abdominal pain for a week. Bowel movement every day. Decreased appetite. Permanent pacemaker was noted in the ER to be having increased heart rate. Pacemaker check was ordered. No chest pain. No dizziness no lightheadedness. March 27: Sitting at the edge of the bed. Family present. Breathing better. No palpitation. IV Lasix. Active Medications Allopurinol (Allopurinol 100 Mg Tab) 150 mg PO BID [facility] Last Admin: 03/27/23 08:17 Dose: 150 mg Atorvastatin Calcium (Atorvastatin 80 Mg Tab) 80 mg PO [facility] Last Admin: 03/26/23 22:06 Dose: 80 mg Furosemide (Furosemide 10 Mg/Ml 4 Ml Vial) 40 mg IV Q12H [facility] Last Admin: 03/27/23 05:49 Dose: 40 mg Sodium Chloride (Saline 0.9%) 1,000 mls @ 20 mls/hr IV .Q24H [facility] Last Admin: 03/27/23 12:32 Dose: Not Given Levothyroxine Sodium (Levothyroxine 50 Mcg Tab) 50 mcg PO DAILY@0630 [facility] Last Admin: 03/27/23 05:49 Dose: 50 mcg Losartan Potassium (Losartan 50 Mg Tab) 50 mg PO [facility] Last Admin: 03/26/23 22:05 Dose: 50 mg Magnesium Oxide (Magnesium Oxide 400 Mg Tab) 400 mg PO [facility] Last Admin: 03/26/23 22:05 Dose: 400 mg Magnesium Oxide (Magnesium Oxide 400 Mg Tab) 400 mg PO DAILY [facility] Last Admin: 03/27/23 08:16 Dose: 400 mg Metformin HCl (Metformin 500 Mg Tab) 1,000 mg PO [facility] Last Admin: 03/26/23 22:05 Dose: 1,000 mg Metformin HCl (Metformin 500 Mg Tab) 500 mg PO DAILY [facility] Last Admin: 03/27/23 08:16 Dose: 500 mg Metolazone (Metolazone 5 Mg Tab) 5 mg PO [facility] Last Admin: 03/26/23 22:55 Dose: 5 mg Metoprolol Succinate (Metoprolol Succinate (Er) 100 Mg Tab.Er.24h) 100 mg PO [facility] Last Admin: 03/26/23 22:05 Dose: 100 mg Multivitamins (Multivitamins, Thera 1 Each Tab) 1 each PO BID [facility] Last Admin: 03/27/23 08:16 Dose: 1 each Nitroglycerin (Nitroglycerin Sl Tabs 0.4 Mg Tab) 0.4 mg SUBLINGUAL Q5M PRN PRN Reason: Chest Pain Pantoprazole Sodium (Pantoprazole 40 Mg Tablet) 40 mg PO AC-BRKFST [facility] Last Admin: 03/27/23 05:49 Dose: 40 mg Potassium Chloride (Potassium Chloride Er 20 Meq Tab.Er) 20 meq PO BID [facility] Last Admin: 03/27/23 08:16 Dose: 20 meq Warfarin Sodium (Warfarin 7.5 Mg Tab) 7.5 mg PO [facility]; Protocol Last Admin: 03/26/23 22:05 Dose: 7.5 mg Past medical history to include: COPD, CAD, CHF, diabetes, GERD, hypertension, hyperlipidemia, psoriasis, thyroid disorder, colon cancer treated with surgery and radiation, PAD, sodium is this, hiatal hernia, peptic ulcer disease, gout, heart valve replacement 2015, pacemaker Social history: Lives alone. Smoked for about 35 years. Stopped in 2006. Alcohol o ccasionally. Physical examination: VITAL SIGNS: 98.7, 120, 16, 108/81, 97% room air GENERAL: BMI 33.1, sitting at the edge of the bed. EYES: Pupils equal. Conjunctiva normal. HEENT: External appearance of nose and ears normal, oral cavity grossly normal. NECK: JVD not raised; masses not palpable. HEART: First and second heart sounds are normal; no edema. LUNGS: Respiratory rate normal; clear to auscultation. ABDOMEN: Soft, nontender, liver spleen not palpable, no masses palpable. PSYCH: Alert and oriented x3; mood and affect normal. MUSCULOSKELETAL:No Clubbing/cyanosis;muscles-grossly intact INVESTIGATIONS, reviewed in the clinical context: 2-D echocardiogram: EF 10-15%. [id number] MR. Bioprosthetic aortic valve March 27: White count 8.3 hemoglobin 11.2 potassium 3.4 BUN 35 creatinine 1.66 White count 13.4 hemoglobin 11.5 platelets 315 sodium 138 potassium 3.9 BUN 28 creatinine 1.51 Troponin I 0.078, 0.066 ProBNP 2210 UA: Protein 2+, Influenza type A, B, RSV, COVID-19: Not detected EKG tracing personally reviewed by me-atrial flutter/tachycardia with a heart rate of 120 Chest x-ray film personally reviewed by me-cardiomegaly. CT abdomen pelvis: No bowel obstruction. Possible inflammatory changes were duodenitis. Assessment and plan: -Atrial fibrillation/atrial tachycardia, uncontrolled with the patient with pacemaker: Slow to respond Precipitating CHF Follow with cardiology Telemetry. -Acute on chronic congestive heart failure. From systolic dysfunction EF 10- 50%. Slow to respond IV Lasix. Continue -Chronic kidney disease stage III likely nephrosclerosis Patient's creatinine was 1.86 in 2016 -Troponin leak likely from uncontrolled atrial arrhythmia. Acute coronary syndrome unlikely in the setting of CK D -Hypothyroid Synthroid 50 g -Coumadin monitoring Follow with pharmacy -GERD Prilosec 40 mg -Chronic gout Allopurinol. -Hyperlipidemia Lipitor, Lopid -Diabetes mellitus type 2 on oral hypoglycemic Glucophage. Follow Accu-Cheks with sliding scale Continue his IV Lasix. Other medications to continue. Follow with cardiology E. Discussed
[2023-03-27 16:51] LABS: Glucose,Whole Blood 188 mg/dL (70-110)
--- NOTE | 2023-03-27 18:13 | P.PN ---
Subjective Progress Note Date: 03/27/23 PROGRESS NOTE The patient is a 67-year-old male with known history of diabetes, atrial fibrillation, post aortic valve replacement who presented with progressive dyspnea, progressive edema and abdominal pain. He had minimal troponin elevation. He had episodes of atrial fibrillation with rapid ventricular response. He is feeling better today, denies any chest discomfort. His breathing has improved according to him. He denies any dizziness or palpitations. His echocardiogram showed a severely impaired systolic function. The bioprosthetic aortic valve was noted to have a normal function . He is status post ICD implantation. Medications: Lasix 40 mg IV every 12 hours, Lipitor 80 mg daily, losartan 59 g daily, metformin, Zaroxolyn 5 mg daily, metoprolol succinate 100 mg daily, Coumadin, potassium PHYSICAL EXAMINATION: Blood pressure 122/80 heart rate 100 LUNGS: Crackles at the bases HEART: Irregular rate and rhythm, S1, S2. No S3. Systolic ejection murmur ABDOMEN: Soft, nontender, no organomegaly EXTREMETIES: 1+ edema LAB: BUN 35, creatinine 1.66, potassium 3.4, INR 2.4. IMPRESSION: 1. CHF with severely impaired systolic function 2. Chronic persistent atrial fibrillation 3. Status post ICD implantation 4. Chronic kidney disease PLAN: 1. Continue IV diuresis 2. Follow her renal functions 3. Add Farxiga 4. Depending on his progress further recommendations will be made Objective - Vital Signs Vital signs: Vital Signs Temp 98.0 F 03/27/23 16:00 Pulse 118 H 03/27/23 16:00 Resp 16 03/27/23 16:00 BP 122/88 03/27/23 16:00 Pulse Ox 97 03/27/23 16:00 FiO2 Intake & Output 03/26/23 03/27/23 03/27/23 18:59 06:59 18:59 Intake Total 540 Output Total 850 1400 1250 Balance -415 -1907 -453 Weight 110.677 kg 109.3 kg Intake: Oral 540 Output: Urine 850 1400 1250 Other: Voiding Method Toilet Toilet Toilet Urinal Urinal Urinal - Labs CBC & Chem 7: 03/27/23 06:38 03/27/23 06:38 Labs: Abnormal Lab Results - Last 24 Hours (Table) 03/26/23 03/27/23 03/27/23 Range/Units 20:30 06:18 06:38 RBC (4.30-5.90) m/uL Hgb (13.0-17.5) gm/dL Hct (39.0-53.0) % PT (9.0-12.0) sec INR (<1.2) Sodium 136 L (137-145) mmol/L Potassium 3.4 L (3.5-5.1) mmol/L Chloride 96 L (98-107) mmol/L BUN 35 H (9-20) mg/dL Creatinine 1.66 H (0.66-1.25) mg/dL Glucose 173 H (74-99) mg/dL POC Glucose (mg/dL) 198 H 173 H (70-110) mg/dL 03/27/23 03/27/23 03/27/23 Range/Units 06:38 06:38 11:56 RBC 3.56 L (4.30-5.90) m/uL Hgb 11.2 L (13.0-17.5) gm/dL Hct 33.1 L (39.0-53.0) % PT 23.3 H (9.0-12.0) sec INR 2.4 H (<1.2) Sodium (137-145) mmol/L Potassium (3.5-5.1) mmol/L Chloride (98-107) mmol/L BUN (9-20) mg/dL Creatinine (0.66-1.25) mg/dL Glucose (74-99) mg/dL POC Glucose (mg/dL) 170 H (70-110) mg/dL 03/27/23 Range/Units 16:30 RBC (4.30-5.90) m/uL Hgb (13.0-17.5) gm/dL Hct (39.0-53.0) % PT (9.0-12.0) sec INR (<1.2) Sodium (137-145) mmol/L Potassium (3.5-5.1) mmol/L Chloride (98-107) mmol/L BUN (9-20) mg/dL Creatinine (0.66-1.25) mg/dL Glucose (74-99) mg/dL POC Glucose (mg/dL) 188 H (70-110) mg/dL
[2023-03-27] MEDS: DAPAGLIFLOZIN PROPANEDIOL 10 MG TABLET PO SCH (18:49)
[2023-03-27 20:11] LABS: Glucose,Whole Blood 188 mg/dL (70-110)
[2023-03-27] MEDS: metOLazone 5 MG TAB PO SCH (21:30)
[2023-03-27] MEDS: LOSARTAN 50 MG TAB PO SCH (21:30)
[2023-03-27] MEDS: WARFARIN 7.5 MG TAB PO SCH (21:31)
[2023-03-27] MEDS: ATORVASTATIN 80 MG TAB PO SCH (21:31)
[2023-03-27] MEDS: METOPROLOL SUCCINATE (ER) 100 MG TAB.ER.24H PO SCH (21:32)
[2023-03-28 06:15] LABS: Glucose,Whole Blood 183 mg/dL (70-110)
[2023-03-28] MEDS: PANTOPRAZOLE 40 MG TABLET PO SCH (06:27)
[2023-03-28] MEDS: LEVOTHYROXINE 50 MCG TAB PO SCH (06:27)
[2023-03-28] MEDS: FUROSEMIDE 10 MG/ML 4 ML VIAL IV SCH ×2 (06:27→17:53)
[2023-03-28 07:39] LABS: INR 2.4 (<1.2); Prothrombin Time 23.7 sec (9.0-12.0)
[2023-03-28 07:54] LABS: Calcium 9.6 mg/dL (8.4-10.2); Potassium 3.5 mmol/L (3.5-5.1)
[2023-03-28 09:27] LABS: Chol/HDL Ratio 4.01 Ratio; LDL Cholesterol,Calculated 61.6 mg/dL
[2023-03-28] MEDS: metFORMIN 500 MG TAB PO SCH ×2 (09:33→20:19)
[2023-03-28] MEDS: DAPAGLIFLOZIN PROPANEDIOL 10 MG TABLET PO SCH (09:33)
[2023-03-28] MEDS: POTASSIUM CHLORIDE ER 20 MEQ TAB.ER PO SCH ×2 (09:33→20:18)
[2023-03-28] MEDS: MULTIVITAMINS, THERA 1 EACH TAB PO SCH ×2 (09:34→20:19)
[2023-03-28] MEDS: allopurinoL 100 MG TAB PO SCH ×2 (09:34→20:18)
[2023-03-28] MEDS: MAGNESIUM OXIDE 400 MG TAB PO SCH ×2 (09:34→20:18)
[2023-03-28 11:42] LABS: Glucose,Whole Blood 201 mg/dL (70-110)
--- NOTE | 2023-03-28 14:39 | P.PN ---
Progress Note - Text Progress Note Date: 03/28/23 Chief Complaint: Short of breath This is a pleasant 67-year-old patient who follows Dr. Pelaez. Chronic stable medical conditions include CAD, CHF, diabetes, GERD, hypertension, hyperlipidemia, hypothyroid, colon cancer treated with resection and radiation treatment, hiatal hernia, psoriatic assess, gout,. Patient presents for about one week getting creasing short of breath. No fever no chills. No cough. Patient has chronic left lower extremity swelling. Also has had some abdominal pain for a week. Bowel movement every day. Decreased appetite. Permanent pacemaker was noted in the ER to be having increased heart rate. Pacemaker check was ordered. No chest pain. No dizziness no lightheadedness. March 27: Sitting at the edge of the bed. Family present. Breathing better. No palpitation. IV Lasix. March 28: Breathing better. Sitting at edge of the bed. Heart rate in 1 teens. On IV Lasix and Zaroxolyn. Active Medications Allopurinol (Allopurinol 100 Mg Tab) 150 mg PO BID [facility] Last Admin: 03/28/23 09:34 Dose: 150 mg Atorvastatin Calcium (Atorvastatin 80 Mg Tab) 80 mg PO [facility] Last Admin: 03/27/23 21:31 Dose: 80 mg Dapagliflozin (Dapagliflozin Propanediol 10 Mg Tablet) 10 mg PO DAILY [facility] Last Admin: 03/28/23 09:33 Dose: 10 mg Furosemide (Furosemide 10 Mg/Ml 4 Ml Vial) 40 mg IV Q12H [facility] Last Admin: 03/28/23 06:27 Dose: 40 mg Sodium Chloride (Saline 0.9%) 1,000 mls @ 20 mls/hr IV .Q24H [facility] Last Admin: 03/27/23 12:32 Dose: Not Given Levothyroxine Sodium (Levothyroxine 50 Mcg Tab) 50 mcg PO DAILY@0630 [facility] Last Admin: 03/28/23 06:27 Dose: 50 mcg Losartan Potassium (Losartan 50 Mg Tab) 50 mg PO [facility] Last Admin: 03/27/23 21:30 Dose: 50 mg Magnesium Oxide (Magnesium Oxide 400 Mg Tab) 400 mg PO [facility] Last Admin: 03/27/23 21:31 Dose: 400 mg Magnesium Oxide (Magnesium Oxide 400 Mg Tab) 400 mg PO DAILY [facility] Last Admin: 03/28/23 09:34 Dose: 400 mg Metformin HCl (Metformin 500 Mg Tab) 1,000 mg PO [facility] Last Admin: 03/27/23 21:30 Dose: 1,000 mg Metformin HCl (Metformin 500 Mg Tab) 500 mg PO DAILY [facility] Last Admin: 03/28/23 09:33 Dose: 500 mg Metolazone (Metolazone 5 Mg Tab) 5 mg PO [facility] Last Admin: 03/27/23 21:30 Dose: 5 mg Metoprolol Succinate (Metoprolol Succinate (Er) 100 Mg Tab.Er.24h) 100 mg PO [facility] Last Admin: 03/27/23 21:32 Dose: 100 mg Miscellaneous Information (Warfarin Per Pharmacy) 0 each MISCELLANE DIRECTED PRN PRN Reason: ANTICOAG Multivitamins (Multivitamins, Thera 1 Each Tab) 1 each PO BID [facility] Last Admin: 03/28/23 09:34 Dose: 1 each Nitroglycerin (Nitroglycerin Sl Tabs 0.4 Mg Tab) 0.4 mg SUBLINGUAL Q5M PRN PRN Reason: Chest Pain Pantoprazole Sodium (Pantoprazole 40 Mg Tablet) 40 mg PO AC-BRKFST [facility] Last Admin: 03/28/23 06:27 Dose: 40 mg Potassium Chloride (Potassium Chloride Er 20 Meq Tab.Er) 20 meq PO BID [facility] Last Admin: 03/28/23 09:33 Dose: 20 meq Warfarin Sodium (Warfarin 7.5 Mg Tab) 7.5 mg PO [facility]; Protocol Last Admin: 03/27/23 21:31 Dose: 7.5 mg Past medical history to include: COPD, CAD, CHF, diabetes, GERD, hypertension, hyperlipidemia, psoriasis, thyroid disorder, colon cancer treated with surgery and radiation, PAD, sodium is this, hiatal hernia, peptic ulcer disease, gout, heart valve replacement 2016, pacemaker Social history: Lives alone. Smoked for about 35 years. Stopped in 2006. Alcohol occasionally. Physical examination: VITAL SIGNS: 98.1, 121, 18, 123/86, 93% room air GENERAL: BMI 33.1, sitting at the edge of the bed. EYES: Pupils equal. Conjunctiva normal. HEENT: External appearance of nose and ears normal, oral cavity grossly normal. NECK: JVD not raised; masses not palpable. HEART: First and second heart sounds are normal; no edema. LUNGS: Respiratory rate normal; clear to auscultation. ABDOMEN: Soft, nontender, liver spleen not palpable, no masses palpable. PSYCH: Alert and oriented x3; mood and affect normal. MUSCULOSKELETAL:No Clubbing/cyanosis;muscles-grossly intact INVESTIGATIONS, reviewed in the clinical context: March 28: INR 2.4 potassium 3.5 BUN 44 creatinine 1.7 2-D echocardiogram: EF 10-15%. [id number] MR. Bioprosthetic aortic valve March 27: White count 8.3 hemoglobin 11.2 potassium 3.4 BUN 35 creatinine 1.66 White count 13.4 hemoglobin 11.5 platelets 315 sodium 138 potassium 3.9 BUN 28 creatinine 1.51 Troponin I 0.078, 0.066 ProBNP 2210 UA: Protein 2+, Influenza type A, B, RSV, COVID-19: Not detected EKG tracing personally reviewed by me-atrial flutter/tachycardia with a heart rate of 120 Chest x-ray film personally reviewed by me-cardiomegaly. CT abdomen pelvis: No bowel obstruction. Possible inflammatory changes were duodenitis. Assessment and plan: -Atrial fibrillation/atrial tachycardia, uncontrolled with the patient with pacemaker: Slow to respond Precipitating CHF Follow with cardiology Telemetry. Toprol XL 100 -Acute on chronic congestive heart failure. From systolic dysfunction EF 10- 50%. Slow to respond IV Lasix. Continue -Chronic kidney disease stage III likely nephrosclerosis Patient's creatinine was 1.86 in 2016 -Troponin leak likely from uncontrolled atrial arrhythmia. Acute coronary syndrome unlikely in the setting of CK D -Hypothyroid Synthroid 50 g -Coumadin monitoring Follow with pharmacy -GERD Prilosec 40 mg -Chronic gout Allopurinol. -Hyperlipidemia Lipitor, Lopid -Diabetes mellitus type 2 on oral hypoglycemic Glucophage. Follow Accu-Cheks with sliding scale Zaroxolyn. IV Lasix. Discussed. Follow renal function.
[2023-03-28 16:10] LABS: Glucose,Whole Blood 167 mg/dL (70-110)
--- NOTE | 2023-03-28 16:28 | P.PN ---
Subjective Progress Note Date: 03/28/23 PROGRESS NOTE The patient is a 67-year-old male with known history of diabetes, atrial fibrillation, post aortic valve replacement who presented with progressive dyspnea, progressive edema and abdominal pain. He had minimal troponin elevation. He had episodes of atrial fibrillation with rapid ventricular response. He is feeling better today, denies any chest discomfort. His breathing has improved according to him. He denies any dizziness or palpitations. His echocardiogram showed a severely impaired systolic function. The bioprosthetic aortic valve was noted to have a normal function . He is status post ICD implantation. March 28: The patient is feeling well this morning, he denies any chest discomfort, dizziness or palpitations. He denies any nausea or vomiting. He continues to be in atrial fibrillation with episodes of fast ventricular response. He is anticoagulated. Hemodynamically stable. Medications: Lasix 40 mg IV every 12 hours, Lipitor 80 mg daily, losartan 50 mg daily, me tformin, Zaroxolyn 5 mg daily, metoprolol succinate 100 mg daily, Coumadin, potassium PHYSICAL EXAMINATION: Blood pressure 112/80 heart rate 100 to 110 LUNGS: Crackles at the bases HEART: Irregular rate and rhythm, S1, S2. No S3. Systolic ejection murmur ABDOMEN: Soft, nontender, no organomegaly EXTREMETIES: Trace to 1+ edema LAB: BUN 44, creatinine 1.7, potassium 3.5, INR 2.4. IMPRESSION: 1. CHF with severely impaired systolic function 2. Chronic persistent atrial fibrillation with episodes of rapid ventricle response 3. Status post ICD implantation 4. Chronic kidney disease PLAN: 1. Change to oral diuretics 2. Increase the dose of beta lurdes 3. Follow renal functions 4. If ventricular response remained fast consider adding amiodarone Objective - Vital Signs Vital signs: Vital Signs Temp 97.4 F L 03/28/23 15:50 Pulse 120 H 03/28/23 15:50 Resp 18 03/28/23 15:50 BP 112/82 03/28/23 15:50 Pulse Ox 95 03/28/23 15:50 FiO2 Intake & Output 03/27/23 03/28/23 03/28/23 18:59 06:59 18:59 Intake Total 1080 240 Output Total 8188 793 7240 Balance -170 -271 -599 Weight 107.9 kg Intake: Oral 1080 240 Output: Urine 4407 882 9437 Other: Voiding Method Toilet Toilet Toilet Urinal Urinal Urinal - Labs CBC & Chem 7: 03/27/23 06:38 03/28/23 06:39 Labs: Abnormal Lab Results - Last 24 Hours (Table) 03/27/23 03/27/23 03/27/23 Range/Units 06:38 16:30 20:10 PT (9.0-12.0) sec INR (<1.2) Sodium (137-145) mmol/L Chloride (98-107) mmol/L BUN (9-20) mg/dL Creatinine (0.66-1.25) mg/dL Glucose (74-99) mg/dL POC Glucose (mg/dL) 188 H 188 H (70-110) mg/dL Triglycerides 266.00 H mg/dL VLDL Cholesterol, Calc 53.20 H mg/dL HDL Cholesterol 38.20 L mg/dL 03/28/23 03/28/23 03/28/23 Range/Units 06:14 06:39 06:39 PT 23.7 H (9.0-12.0) sec INR 2.4 H (<1.2) Sodium 134 L (137-145) mmol/L Chloride 91 L (98-107) mmol/L BUN 44 H (9-20) mg/dL Creatinine 1.70 H (0.66-1.25) mg/dL Glucose 174 H (74-99) mg/dL POC Glucose (mg/dL) 183 H (70-110) mg/dL Triglycerides mg/dL VLDL Cholesterol, Calc mg/dL HDL Cholesterol mg/dL 03/28/23 03/28/23 Range/Units 11:40 16:08 PT (9.0-12.0) sec INR (<1.2) Sodium (137-145) mmol/L Chloride (98-107) mmol/L BUN (9-20) mg/dL Creatinine (0.66-1.25) mg/dL Glucose (74-99) mg/dL POC Glucose (mg/dL) 201 H 167 H (70-110) mg/dL Triglycerides mg/dL VLDL Cholesterol, Calc mg/dL HDL Cholesterol mg/dL
[2023-03-28 20:08] LABS: Glucose,Whole Blood 168 mg/dL (70-110)
[2023-03-28] MEDS: ATORVASTATIN 80 MG TAB PO SCH (20:18)
[2023-03-28] MEDS: LOSARTAN 50 MG TAB PO SCH (20:18)
[2023-03-28] MEDS: metOLazone 5 MG TAB PO SCH (20:18)
[2023-03-28] MEDS: WARFARIN 7.5 MG TAB PO SCH (20:19)
[2023-03-28] MEDS: METOPROLOL SUCCINATE (ER) 100 MG TAB.ER.24H PO SCH (20:19)
[2023-03-29] MEDS ORDERED: HALOPERIDOL LACTATE 5 MG/ML 1 ML VIAL IM STA (02:06)
[2023-03-29 06:03] LABS: Glucose,Whole Blood 186 mg/dL (70-110)
[2023-03-29] MEDS: FUROSEMIDE 10 MG/ML 4 ML VIAL IV SCH (06:10)
[2023-03-29] MEDS: SODIUM CHLORIDE 0.9% 1,000 ML IV SCH ×2 (06:10→19:14)
[2023-03-29] MEDS: PANTOPRAZOLE 40 MG TABLET PO SCH (06:10)
[2023-03-29] MEDS: LEVOTHYROXINE 50 MCG TAB PO SCH (06:10)
[2023-03-29] MEDS: allopurinoL 100 MG TAB PO SCH ×2 (09:01→20:21)
[2023-03-29] MEDS: MAGNESIUM OXIDE 400 MG TAB PO SCH ×2 (09:01→20:20)
[2023-03-29] MEDS: MULTIVITAMINS, THERA 1 EACH TAB PO SCH ×2 (09:01→20:20)
[2023-03-29] MEDS: POTASSIUM CHLORIDE ER 20 MEQ TAB.ER PO SCH ×2 (09:01→20:20)
[2023-03-29] MEDS: metFORMIN 500 MG TAB PO SCH ×2 (09:02→20:20)
[2023-03-29] MEDS: DAPAGLIFLOZIN PROPANEDIOL 10 MG TABLET PO SCH (09:02)
[2023-03-29] MEDS: METOPROLOL SUCCINATE (ER) 50 MG TAB.ER.24H PO SCH (09:02)
[2023-03-29 09:44] LABS: Prothrombin Time 19.8 sec (9.0-12.0)
[2023-03-29 10:49] LABS: African American GFR (CKD) 41 (>60 ml/min/1.73 sqM); Anion Gap 8 mmol/L; Blood Urea Nitrogen 58 mg/dL (9-20); Calcium 9.4 mg/dL (8.4-10.2); Carbon Dioxide 39 mmol/L (22-30); Chloride 88 mmol/L (98-107); Glucose 213 mg/dL (74-99); Non-African American GFR(CKD) 35 (>60 ml/min/1.73 sqM); Potassium 3.2 mmol/L (3.5-5.1); Sodium 135 mmol/L (137-145)
--- NOTE | 2023-03-29 11:22 | P.PN ---
Subjective This is a 67-year-old male with a past medical history significant for permanent atrial fibrillation, hypertension, hyperlipidemia, peripheral arterial disease with previous intervention of the left leg, aortic stenosis and regurgitation with previous aortic valve replacement, congestive heart failure, and cardiomyopathy. Patient follows in the office with Dr. Mendoza. We have been asked to see the patient in consultation for elevated troponins. Patient examined at the bedside. Patient presented to the hospital with a chief complaint of abdomin al pain. He also reports increased shortness of breath with exertion. He states he is usually short of breath but it is worse than normal. He reports mild lower extremity edema, usually worse on the left. No chest pain or pressure. No nausea or vomiting. Reports diarrhea, which is chronic for patient. No dizziness or palpitations. It is noted that the patient was notified by the cardiology office via telephone on 03/23/2023 regarding an episode of atrial fibrillation with RVR that was reported from his device on 03/19/2023. The patient denied feeling anything at that time. He told the cardiology office he was moving heavy objects and doing yard work and felt weak and short of breath. The patient received ATP therapy. * EKG reveals atrial fibrillation with RVR * Chest xray cardiomegaly with patchy bibasilar opacities favoring atelectasis * CT abdomen and pelvis revealed no evidence of bowel ejection. Possible focal inflammatory changes or duodenitis. Differential includes infectious and/or inflammatory etiologies. No acute findings otherwise seen on noncontrast CT. * Laboratory data: WBC 13.4. Hemoglobin 11.5. Blood count 315. D-dimer 0.27. INR 2.6. Sodium 138. Potassium 3.9. BUN 28. Creatinine 1.51. Troponin 0.078. ProBNP 2210. * Current home cardiac medications include Lasix 80 mg Wednesday, losartan 50 mg at night, Zaroxolyn 5 mg at night, aspirin 162 mg daily, warfarin 7.5 mg at night, metoprolol succinate 100 mg at night, Lipitor 80 mg at night, Lopid 600 mg twice a day * Most recent echocardiogram obtained in October 2022 revealed ejection fraction 30-35% with AV prosthesis noted, moderate MR, mild TR * Cardiac catheterization history: 2013 revealing mild nonobstructive coronary artery disease 03/29 Patient seen and examined. Patient still remains tachycardic with heart rates in the 120 range. Creatinine has increased up to 1.9. Denies any chest pain or pressure. He was switched to oral diuretics. Admits his abdominal fullness has improved with the diuresis. Blood pressure is borderline 110s to 120s systolic. PHYSICAL EXAM: VITAL SIGNS: Reviewed. GENERAL: Well-developed in no acute distress. HEENT: Head is normocephalic. Pupils are equal, round. Sclerae anicteric. Mucous membranes of the mouth are moist. Neck supple. No JVD or thyromegaly LUNGS: Respirations even and unlabored. Lungs diminished at the bases. HEART: Tachycardic. Irregular rate and rhythm. S1 and S2 heard. Soft systolic murmur noted. ABDOMEN: Soft. Nondistended. Nontender. EXTREMITIES: Normal range of motion. No clubbing or cyanosis. Peripheral pulse s intact. Minimal lower extremity edema NEUROLOGIC: Awake and alert. Oriented x 3. ASSESSMENT: Acute kidney injury Acute on chronic congestive heart failure with reduced EF Abnormal troponin, not suggestive of ACS Permanent atrial fibrillation with RVR on admission History of aortic stenosis with bioprosthetic aortic valve replacement Nonischemic cardiomyopathy, 3035% Mild nonobstructive coronary artery disease, per cardiac catheterization in 2014 Peripheral arterial disease with previous intervention of left lower extremity Hypertension Hyperlipidemia Diabetes PLAN: Patient with increasing creatinine and currently appears euvolemic. Hold diuretics for today add digoxin for better rate control. If kidney function improves and heart rates mildly improved may consider discharge in the next 24 hours however has been having worsening kidney function and continued RVR. Unclear if rhythm approach will work and therefore try digoxin with AICD in place if significant bradycardia. Objective - Vital Signs Vital signs: Vital Signs Temp 98.1 F 03/29/23 09:00 Pulse 116 H 03/29/23 09:00 Resp 16 03/29/23 09:00 BP 99/68 03/29/23 09:00 Pulse Ox 96 03/29/23 09:00 FiO2 Intake & Output 03/28/23 03/29/23 03/29/23 18:59 06:59 18:59 Intake Total 360 760 Output Total 1500 1500 500 Balance -1140 -1500 260 Weight 106.5 kg Intake: Oral 360 760 Output: Urine 1500 1500 500 Other: Voiding Method Toilet Toilet Toilet Urinal Urinal Urinal - Labs CBC & Chem 7: 03/27/23 06:38 03/29/23 09:22 Labs: Abnormal Lab Results - Last 24 Hours (Table) 03/28/23 03/28/23 03/28/23 Range/Units 11:40 16:08 20:07 PT (9.0-12.0) sec INR (<1.2) Sodium (137-145) mmol/L Potassium (3.5-5.1) mmol/L Chloride (98-107) mmol/L Carbon Dioxide (22-30) mmol/L BUN (9-20) mg/dL Creatinine (0.66-1.25) mg/dL Glucose (74-99) mg/dL POC Glucose (mg/dL) 201 H 167 H 168 H (70-110) mg/dL 03/29/23 03/29/23 03/29/23 Range/Units 06:01 09:22 09:22 PT 19.8 H (9.0-12.0) sec INR 2.0 H (<1.2) Sodium 135 L (137-145) mmol/L Potassium 3.2 L (3.5-5.1) mmol/L Chloride 88 L (98-107) mmol/L Carbon Dioxide 39 H (22-30) mmol/L BUN 58 H (9-20) mg/dL Creatinine 1.95 H (0.66-1.25) mg/dL Glucose 213 H (74-99) mg/dL POC Glucose (mg/dL) 186 H (70-110) mg/dL
[2023-03-29] MEDS ORDERED: DIGOXIN 250 MCG/ML 2 ML AMP IVP STA (11:23)
[2023-03-29 12:07] LABS: Glucose,Whole Blood 182 mg/dL (70-110)
[2023-03-29] MEDS ORDERED: DIGOXIN 250 MCG/ML 2 ML AMP IVP ONE (17:00)
[2023-03-29 17:19] LABS: Glucose,Whole Blood 170 mg/dL (70-110)
[2023-03-29 19:55] LABS: Glucose,Whole Blood 218 mg/dL (70-110)
[2023-03-29] MEDS: METOPROLOL SUCCINATE (ER) 100 MG TAB.ER.24H PO SCH (20:20)
[2023-03-29] MEDS: ATORVASTATIN 80 MG TAB PO SCH (20:20)
[2023-03-29] MEDS: LOSARTAN 50 MG TAB PO SCH (20:21)
[2023-03-29] MEDS: WARFARIN 7.5 MG TAB PO SCH (20:21)
--- NOTE | 2023-03-29 22:10 | P.PN ---
Progress Note - Text Progress Note Date: 03/29/23 Chief Complaint: Short of breath This is a pleasant 67-year-old patient who follows Dr. Pelaez. Chronic stable medical conditions include CAD, CHF, diabetes, GERD, hypertension, hyperlipidemia, hypothyroid, colon cancer treated with resection and radiation treatment, hiatal hernia, psoriatic assess, gout,. Patient presents for about one week getting creasing short of breath. No fever no chills. No cough. Patient has chronic left lower extremity swelling. Also has had some abdominal pain for a week. Bowel movement every day. Decreased appetite. Permanent pacemaker was noted in the ER to be having increased heart rate. Pacemaker check was ordered. No chest pain. No dizziness no lightheadedness. March 27: Sitting at the edge of the bed. Family present. Breathing better. No palpitation. IV Lasix. March 28: Breathing better. Sitting at edge of the bed. Heart rate in 1 teens. On IV Lasix and Zaroxolyn. March 29: Seen by cardiology earlier today. Diuretics have been held. Digoxin added. Some bump in creatinine. Family at the bedside. Active Medications Allopurinol (Allopurinol 100 Mg Tab) 150 mg PO BID [facility] Last Admin: 03/29/23 20:21 Dose: 150 mg Atorvastatin Calcium (Atorvastatin 80 Mg Tab) 80 mg PO [facility] Last Admin: 03/29/23 20:20 Dose: 80 mg Dapagliflozin (Dapagliflozin Propanediol 10 Mg Tablet) 10 mg PO DAILY [facility] Last Admin: 03/29/23 09:02 Dose: 10 mg Digoxin (Digoxin 250 Mcg/Ml 2 Ml Amp) 125 mcg IVP DAILY [facility] Sodium Chloride (Saline 0.9%) 1,000 mls @ 20 mls/hr IV .Q24H [facility] Last Admin: 03/29/23 19:14 Dose: Not Given Levothyroxine Sodium (Levothyroxine 50 Mcg Tab) 50 mcg PO DAILY@0630 [facility] Last Admin: 03/29/23 06:10 Dose: 50 mcg Losartan Potassium (Losartan 50 Mg Tab) 50 mg PO [facility] Last Admin: 03/29/23 20:21 Dose: 50 mg Magnesium Oxide (Magnesium Oxide 400 Mg Tab) 400 mg PO [facility] Last Admin: 03/29/23 20:20 Dose: 400 mg Magnesium Oxide (Magnesium Oxide 400 Mg Tab) 400 mg PO DAILY [facility] Last Admin: 03/29/23 09:01 Dose: 400 mg Metformin HCl (Metformin 500 Mg Tab) 1,000 mg PO [facility] Last Admin: 03/29/23 20:20 Dose: 1,000 mg Metformin HCl (Metformin 500 Mg Tab) 500 mg PO DAILY [facility] Last Admin: 03/29/23 09:02 Dose: 500 mg Metoprolol Succinate (Metoprolol Succinate (Er) 100 Mg Tab.Er.24h) 100 mg PO [facility] Last Admin: 03/29/23 20:20 Dose: 100 mg Metoprolol Succinate (Metoprolol Succinate (Er) 50 Mg Tab.Er.24h) 50 mg PO DAILY [facility] Last Admin: 03/29/23 09:02 Dose: 50 mg Miscellaneous Information (Warfarin Per Pharmacy) 0 each MISCELLANE DIRECTED PRN PRN Reason: ANTICOAG Multivitamins (Multivitamins, Thera 1 Each Tab) 1 each PO BID [facility] Last Admin: 03/29/23 20:20 Dose: 1 each Nitroglycerin (Nitroglycerin Sl Tabs 0.4 Mg Tab) 0.4 mg SUBLINGUAL Q5M PRN PRN Reason: Chest Pain Pantoprazole Sodium (Pantoprazole 40 Mg Tablet) 40 mg PO AC-BRKFST [facility] Last Admin: 03/29/23 06:10 Dose: 40 mg Potassium Chloride (Potassium Chloride Er 20 Meq Tab.Er) 20 meq PO BID [facility] Last Admin: 03/29/23 20:20 Dose: 20 meq Warfarin Sodium (Warfarin 7.5 Mg Tab) 7.5 mg PO [facility]; Protocol Last Admin: 03/29/23 20:21 Dose: 7.5 mg Past medical history to include: COPD, CAD, CHF, diabetes, GERD, hypertension, hyperlipidemia, psoriasis, thyroid disorder, colon cancer treated with surgery and radiation, PAD, sodium is this, hiatal hernia, peptic ulcer disease, gout, heart valve replacement 2015, pacemaker Social history: Lives alone. Smoked for about 35 years. Stopped in 2006. Alcohol occasionally. Physical examination: VITAL SIGNS: 98.1, 116, 16, 99/68, 96% room air GENERAL: Sitting up EYES: Pupils equal. Conjunctiva normal. HEENT: External appearance of nose and ears normal, oral cavity grossly normal. NECK: JVD not raised; masses not palpable. HEART: Heart sounds irregular; no edema. LUNGS: Respiratory rate normal; clear to auscultation. ABDOMEN: Soft, nontender, liver spleen not palpable, no masses palpable. PSYCH: Alert and oriented x3; mood and affect normal. MUSCULOSKELETAL:No Clubbing/cyanosis;muscles-grossly intact INVESTIGATIONS, reviewed in the clinical context: March 29: INR 2 sodium 135 potassium 3.2 BUN 58 creatinine 1.95 March 28: INR 2.4 potassium 3.5 BUN 44 creatinine 1.7 2-D echocardiogram: EF 10-15%. [id number] MR. Bioprosthetic aortic valve March 27: White count 8.3 hemoglobin 11.2 potassium 3.4 BUN 35 creatinine 1.66 White count 13.4 hemoglobin 11.5 platelets 315 sodium 138 potassium 3.9 BUN 28 creatinine 1.51 Troponin I 0.078, 0.066 ProBNP 2210 UA: Protein 2+, Influenza type A, B, RSV, COVID-19: Not detected EKG tracing personally reviewed by me-atrial flutter/tachycardia with a heart rate of 120 Chest x-ray film personally reviewed by me-cardiomegaly. CT abdomen pelvis: No bowel obstruction. Possible inflammatory changes were duodenitis. Assessment and plan: -Atrial fibrillation/atrial tachycardia, uncontrolled with the patient with pacemaker: Slow to respond Precipitating CHF Follow with cardiology Telemetry. Toprol XL 100. Digoxin added. -Acute on chronic congestive heart failure. From systolic dysfunction EF 10- 50%. Better Lasix held -Chronic kidney disease stage III likely nephrosclerosis Patient's creatinine was 1.86 in 2016 -Troponin leak likely from uncontrolled atrial arrhythmia. Acute coronary syndrome unlikely in the setting of CK D -Hypothyroid Synthroid 50 g -Coumadin monitoring Follow with pharmacy -GERD Prilosec 40 mg -Chronic gout Allopurinol. -Hyperlipidemia Lipitor, Lopid -Diabetes mellitus type 2 on oral hypoglycemic Glucophage. Follow Accu-Cheks with sliding scale IV Lasix held. Digoxin added. Heart rate still up. Follow discussed with patient. Follow labs
[2023-03-30 06:20] LABS: Glucose,Whole Blood 191 mg/dL (70-110)
[2023-03-30] MEDS: LEVOTHYROXINE 50 MCG TAB PO SCH (06:26)
[2023-03-30] MEDS: PANTOPRAZOLE 40 MG TABLET PO SCH (06:26)
[2023-03-30] MEDS: allopurinoL 100 MG TAB PO SCH ×2 (09:58→22:03)
[2023-03-30] MEDS: MAGNESIUM OXIDE 400 MG TAB PO SCH ×2 (09:58→22:03)
[2023-03-30] MEDS: METOPROLOL SUCCINATE (ER) 50 MG TAB.ER.24H PO SCH (09:58)
[2023-03-30] MEDS: POTASSIUM CHLORIDE ER 20 MEQ TAB.ER PO SCH (09:58)
[2023-03-30] MEDS: DIGOXIN 250 MCG/ML 2 ML AMP IVP SCH (09:59)
[2023-03-30] MEDS: DAPAGLIFLOZIN PROPANEDIOL 10 MG TABLET PO SCH ×2 (09:59→11:25)
[2023-03-30] MEDS: MULTIVITAMINS, THERA 1 EACH TAB PO SCH ×2 (10:02→22:02)
[2023-03-30] MEDS: SODIUM CHLORIDE 0.9% 1,000 ML IV SCH (10:02)
[2023-03-30] MEDS: metFORMIN 500 MG TAB PO SCH ×2 (11:25→22:02)
[2023-03-30] MEDS ORDERED: DIGOXIN 250 MCG/ML 2 ML AMP IVP STA (11:28)
--- NOTE | 2023-03-30 11:28 | P.PN ---
Subjective This is a 67-year-old male with a past medical history significant for permanent atrial fibrillation, hypertension, hyperlipidemia, peripheral arterial disease with previous intervention of the left leg, aortic stenosis and regurgitation with previous aortic valve replacement, congestive heart failure, and cardiomyopathy. Patient follows in the office with Dr. Mendoza. We have been asked to see the patient in consultation for elevated troponins. Patient examined at the bedside. Patient presented to the hospital with a chief complaint of abdomin al pain. He also reports increased shortness of breath with exertion. He states he is usually short of breath but it is worse than normal. He reports mild lower extremity edema, usually worse on the left. No chest pain or pressure. No nausea or vomiting. Reports diarrhea, which is chronic for patient. No dizziness or palpitations. It is noted that the patient was notified by the cardiology office via telephone on 03/23/2023 regarding an episode of atrial fibrillation with RVR that was reported from his device on 03/19/2023. The patient denied feeling anything at that time. He told the cardiology office he was moving heavy objects and doing yard work and felt weak and short of breath. The patient received ATP therapy. * EKG reveals atrial fibrillation with RVR * Chest xray cardiomegaly with patchy bibasilar opacities favoring atelectasis * CT abdomen and pelvis revealed no evidence of bowel ejection. Possible focal inflammatory changes or duodenitis. Differential includes infectious and/or inflammatory etiologies. No acute findings otherwise seen on noncontrast CT. * Laboratory data: WBC 13.4. Hemoglobin 11.5. Blood count 315. D-dimer 0.27. INR 2.6. Sodium 138. Potassium 3.9. BUN 28. Creatinine 1.51. Troponin 0.078. ProBNP 2210. * Current home cardiac medications include Lasix 80 mg Wednesday, losartan 50 mg at night, Zaroxolyn 5 mg at night, aspirin 162 mg daily, warfarin 7.5 mg at night, metoprolol succinate 100 mg at night, Lipitor 80 mg at night, Lopid 600 mg twice a day * Most recent echocardiogram obtained in October 2022 revealed ejection fraction 30-35% with AV prosthesis noted, moderate MR, mild TR * Cardiac catheterization history: 2013 revealing mild nonobstructive coronary artery disease 03/29 Patient seen and examined. Patient still remains tachycardic with heart rates in the 120 range. Creatinine has increased up to 1.9. Denies any chest pain or pressure. He was switched to oral diuretics. Admits his abdominal fullness has improved with the diuresis. Blood pressure is borderline 110s to 120s systolic. / Patient seen and examined. Heart rate still in the 90-110 range. Digoxin was added yesterday. Kidney function is not resulted back yet from today. Denies any chest pain or pressure. States he is stable on his feet. Does not have significant amount of edema. PHYSICAL EXAM: VITAL SIGNS: Reviewed. GENERAL: Well-developed in no acute distress. HEENT: Head is normocephalic. Pupils are equal, round. Sclerae anicteric. Mucous membranes of the mouth are moist. Neck supple. No JVD or thyromegaly LUNGS: Respirations even and unlabored. Lungs diminished at the bases. HEART: Tachycardic. Irregular rate and rhythm. S1 and S2 heard. Soft systolic murmur noted. ABDOMEN: Soft. Nondistended. Nontender. EXTREMITIES: Normal range of motion. No clubbing or cyanosis. Peripheral pulses intact. Minimal lower extremity edema NEUROLOGIC: Awake and alert. Oriented x 3. ASSESSMENT: Acute kidney injury Acute on chronic congestive heart failure with reduced EF Abnormal troponin, not suggestive of ACS Permanent atrial fibrillation with RVR on admission History of aortic stenosis with bioprosthetic aortic valve replacement Nonischemic cardiomyopathy, 3035% Mild nonobstructive coronary artery disease, per cardiac catheterization in 2013 Peripheral arterial disease with previous intervention of left lower extremity Hypertension Hyperlipidemia Diabetes PLAN: Lasix were held yesterday and await blood work from today. Give additional dose of IV digoxin today with fairly mild improvements in heart rates. Patient has been persistent if not chronic atrial fibrillation and do not feel rhythm approach would be a good option currently. May benefit from AV dilia ablation down the road if still having difficulty controlling heart rates. If creatinine improving possible discharge later today or tomorrow on oral diuretics. Objective - Vital Signs Vital signs: Vital Signs Temp 97.8 F 03/30/23 08:00 Pulse 92 03/30/23 08:00 Resp 18 03/30/23 08:00 BP 124/97 03/30/23 08:00 Pulse Ox 96 03/30/23 09:32 FiO2 Intake & Output 03/29/23 03/30/23 03/30/23 18:59 06:59 18:59 Intake Total 880 480 10 Output Total 1100 1200 Balance -220 -720 10 Weight 107 kg Intake: IV 20 20 10 Invasive Line 2 20 20 10 Oral 860 460 Output: Urine 1100 1200 Other: Voiding Method Toilet Toilet Toilet Urinal Urinal Urinal - Labs CBC & Chem 7: 03/27/23 06:38 03/29/23 09:22 Labs: Abnormal Lab Results - Last 24 Hours (Table) 03/29/23 03/29/23 03/29/23 Range/Units 12:06 17:04 19:51 POC Glucose (mg/dL) 182 H 170 H 218 H (70-110) mg/dL 03/30/23 Range/Units 06:17 POC Glucose (mg/dL) 191 H (70-110) mg/dL
[2023-03-30 11:46] LABS: Glucose,Whole Blood 193 mg/dL (70-110)
[2023-03-30 12:49] LABS: African American GFR (CKD) 41 (>60 ml/min/1.73 sqM); Albumin 4.7 g/dL (3.5-5.0); Anion Gap 17 mmol/L; Blood Urea Nitrogen 65 mg/dL (9-20); Calcium 9.8 mg/dL (8.4-10.2); Carbon Dioxide 33 mmol/L (22-30); Chloride 86 mmol/L (98-107); Glucose 156 mg/dL (74-99); Non-African American GFR(CKD) 36 (>60 ml/min/1.73 sqM); Phosphorus 4.4 mg/dL (2.5-4.5); Potassium 3.9 mmol/L (3.5-5.1); Sodium 136 mmol/L (137-145)
[2023-03-30 12:52] LABS: Basophils % (A) 0 %; Eosinophils # (A) 0.2 k/uL (0-0.7); Eosinophils % (A) 2 %; HGB 13.3 gm/dL (13.0-17.5); INR 2.2 (<1.2); Lymphocytes # (A) 1.5 k/uL (1.0-4.8); Lymphocytes % (A) 16 %; MCH 31.3 pg (25.0-35.0); MCV 92.2 fL (80.0-100.0); Mean Platelet Volume 8.3; Monocytes # (A) 0.5 k/uL (0-1.0); Monocytes % (A) 5 %; Neutrophils # (A) 7.3 k/uL (1.3-7.7); Neutrophils % (A) 75 %; Platelet Count 416 k/uL (150-450); Prothrombin Time 21.8 sec (9.0-12.0); RBC 4.24 m/uL (4.30-5.90); WBC 9.8 k/uL (3.8-10.6)
[2023-03-30 12:53] LABS: African American GFR (CKD) 41 (>60 ml/min/1.73 sqM); Anion Gap 16 mmol/L; Blood Urea Nitrogen 66 mg/dL (9-20); Calcium 9.9 mg/dL (8.4-10.2); Carbon Dioxide 33 mmol/L (22-30); Chloride 86 mmol/L (98-107); Glucose 155 mg/dL (74-99); Non-African American GFR(CKD) 36 (>60 ml/min/1.73 sqM); Potassium 3.9 mmol/L (3.5-5.1); Sodium 135 mmol/L (137-145)
--- NOTE | 2023-03-30 15:39 | P.PN ---
Progress Note - Text Progress Note Date: 03/30/23 Chief Complaint: Short of breath This is a pleasant 67-year-old patient who follows Dr. Pelaez. Chronic stable medical conditions include CAD, CHF, diabetes, GERD, hypertension, hyperlipidemia, hypothyroid, colon cancer treated with resection and radiation treatment, hiatal hernia, psoriatic assess, gout,. Patient presents for about one week getting creasing short of breath. No fever no chills. No cough. Patient has chronic left lower extremity swelling. Also has had some abdominal pain for a week. Bowel movement every day. Decreased appetite. Permanent pacemaker was noted in the ER to be having increased heart rate. Pacemaker check was ordered. No chest pain. No dizziness no lightheadedness. March 27: Sitting at the edge of the bed. Family present. Breathing better. No palpitation. IV Lasix. March 28: Breathing better. Sitting at edge of the bed. Heart rate in 1 teens. On IV Lasix and Zaroxolyn. March 29: Seen by cardiology earlier today. Diuretics have been held. Digoxin added. Some bump in creatinine. Family at the bedside. March 30: Sitting at the edge of bed. Heart rate still up. Patient is off Lasix. Extra dose of digoxin. Breathing stable. Active Medications Allopurinol (Allopurinol 100 Mg Tab) 150 mg PO BID [facility] Last Admin: 03/30/23 09:58 Dose: 150 mg Atorvastatin Calcium (Atorvastatin 80 Mg Tab) 80 mg PO [facility] Last Admin: 03/29/23 20:20 Dose: 80 mg Dapagliflozin (Dapagliflozin Propanediol 10 Mg Tablet) 10 mg PO DAILY [facility] Last Admin: 03/30/23 11:25 Dose: 10 mg Digoxin (Digoxin 250 Mcg/Ml 2 Ml Amp) 125 mcg IVP DAILY [facility] Last Admin: 03/30/23 09:59 Dose: 125 mcg Sodium Chloride (Saline 0.9%) 1,000 mls @ 20 mls/hr IV .Q24H [facility] Last Admin: 03/30/23 10:02 Dose: Not Given Levothyroxine Sodium (Levothyroxine 50 Mcg Tab) 50 mcg PO DAILY@0630 [facility] Last Admin: 03/30/23 06:26 Dose: 50 mcg Losartan Potassium (Losartan 50 Mg Tab) 50 mg PO [facility] Last Admin: 03/29/23 20:21 Dose: 50 mg Magnesium Oxide (Magnesium Oxide 400 Mg Tab) 400 mg PO [facility] Last Admin: 03/29/23 20:20 Dose: 400 mg Magnesium Oxide (Magnesium Oxide 400 Mg Tab) 400 mg PO DAILY [facility] Last Admin: 03/30/23 09:58 Dose: 400 mg Metformin HCl (Metformin 500 Mg Tab) 1,000 mg PO [facility] Last Admin: 03/29/23 20:20 Dose: 1,000 mg Metformin HCl (Metformin 500 Mg Tab) 500 mg PO DAILY [facility] Last Admin: 03/30/23 11:25 Dose: 500 mg Metoprolol Succinate (Metoprolol Succinate (Er) 100 Mg Tab.Er.24h) 100 mg PO [facility] Last Admin: 03/29/23 20:20 Dose: 100 mg Metoprolol Succinate (Metoprolol Succinate (Er) 50 Mg Tab.Er.24h) 50 mg PO DAILY [facility] Last Admin: 03/30/23 09:58 Dose: 50 mg Miscellaneous Information (Warfarin Per Pharmacy) 0 each MISCELLANE DIRECTED PRN PRN Reason: ANTICOAG Multivitamins (Multivitamins, Thera 1 Each Tab) 1 each PO BID [facility] Last Admin: 03/30/23 10:02 Dose: 1 each Nitroglycerin (Nitroglycerin Sl Tabs 0.4 Mg Tab) 0.4 mg SUBLINGUAL Q5M PRN PRN Reason: Chest Pain Pantoprazole Sodium (Pantoprazole 40 Mg Tablet) 40 mg PO AC-BRKFST [facility] Last Admin: 03/30/23 06:26 Dose: 40 mg Potassium Chloride (Potassium Chloride Er 20 Meq Tab.Er) 20 meq PO BID [facility] Last Admin: 03/30/23 09:58 Dose: 20 meq Warfarin Sodium (Warfarin 7.5 Mg Tab) 7.5 mg PO [facility]; Protocol Last Admin: 03/29/23 20:21 Dose: 7.5 mg Past medical history to include: COPD, CAD, CHF, diabetes, GERD, hypertension, hyperlipidemia, psoriasis, thyroid disorder, colon cancer treated with surgery and radiation, PAD, sodium is this, hiatal hernia, peptic ulcer disease, gout, heart valve replacement 2015, pacemaker Social history: Lives alone. Smoked for about 35 years. Stopped in 2006. Alcohol occasionally. Physical examination: VITAL SIGNS: 97.8, 92, 18, 124/97, 93% room air GENERAL: Sitting at the edge of the bed EYES: Pupils equal. Conjunctiva normal. HEENT: External appearance of nose and ears normal, oral cavity grossly normal. NECK: JVD not raised; masses not palpable. HEART: Heart sounds irregular; no edema. LUNGS: Respiratory rate normal; clear to auscultation. ABDOMEN: Soft, nontender, liver spleen not palpable, no masses palpable. PSYCH: Alert and oriented x3; mood and affect normal. MUSCULOSKELETAL:No Clubbing/cyanosis;muscles-grossly intact INVESTIGATIONS, reviewed in the clinical context: March 30: INR 2.2 potassium 3.9 BUN 65 creatinine 1.9 to March 29: INR 2 sodium 135 potassium 3.2 BUN 58 creatinine 1.95 March 28: INR 2.4 potassium 3.5 BUN 44 creatinine 1.7 2-D echocardiogram: EF 10-15%. [id number] MR. Bioprosthetic aortic valve March 27: White count 8.3 hemoglobin 11.2 potassium 3.4 BUN 35 creatinine 1.66 White count 13.4 hemoglobin 11.5 platelets 315 sodium 138 potassium 3.9 BUN 28 creatinine 1.51 Troponin I 0.078, 0.066 ProBNP 2210 UA: Protein 2+, Influenza type A, B, RSV, COVID-19: Not detected EKG tracing personally reviewed by me-atrial flutter/tachycardia with a heart rate of 120 Chest x-ray film personally reviewed by me-cardiomegaly. CT abdomen pelvis: No bowel obstruction. Possible inflammatory changes were duodenitis. Assessment and plan: -Atrial fibrillation/atrial tachycardia, uncontrolled with the patient with pacemaker: Better Precipitating CHF Follow with cardiology Telemetry. Toprol XL 100. Digoxin -Acute on chronic congestive heart failure. From systolic dysfunction EF 10- 50%. Euvolemic Lasix held -Chronic kidney disease stage III likely nephrosclerosis Patient's creatinine was 1.86 in 2016 -Troponin leak likely from uncontrolled atrial arrhythmia. Acute coronary syndrome unlikely. -Hypothyroid Synthroid 50 g -Coumadin monitoring Follow with pharmacy -GERD Prilosec 40 mg -Chronic gout Allopurinol. -Hyperlipidemia Lipitor, Lopid -Diabetes mellitus type 2 on oral hypoglycemic Glucophage. Follow Accu-Cheks with sliding scale Extra dose of digoxin given. Other medications to continue. Follow with cardiology.
--- NOTE | 2023-03-30 16:14 | CDI ---
Documentation Clarification Form Date: 03/30/2023 From: Alma Huber Phone: [phone] Admit Date: 03/26/2023 02:36:00 PM Patient Name: Behzad Dos Santos Visit Number: [id number] ATTENTION: The Clinical Documentation Specialists (CDI) and [facility] Coding Staff appreciate your assistance in clarifying documentation. Please respond to the clarification below the line at the bottom and electronically sign. The CDI & [facility] Coding staff will review the response and follow-up if needed. Please note: Queries are made part of the Legal Health Record. If you have any questions, please contact the author of this message via ITS. Dr. Jasmeet Wilson Your patient has troponin [id number]) of: 03/26 @ 0418 0.078, 03/26 @ 1106 0.066, 03/26 @ 1420 0.072. Please clarify if there is an additional diagnosis and/or clinical significance related to this value. Patient history/risk factors: 67yo w/ a h/o pacemaker insertion presented with atrial fibrillation/atrial tachycardia w/ RVR Clinical indicators: H&P 03/26, Troponin leak likely from uncontrolled atrial arrhythmia Cardiology consult 03/26, Acute on chronic congestive heart failure with reduced EF. Abnormal troponin, not suggestive of ACS Cardiology PN 03/30, Acute kidney injury. Acute on chronic congestive heart failure with reduced EF. Abnormal troponin, not suggestive of ACS. Permanent atrial fibrillation with RVR on admission Treatment: Lopressor IV, Digoxin IV, Lasix IV Is there an additional diagnosis and/or clinical significance related to the above lab result/information: [ ] Type 2 KS due to permanent atrial fibrillation with RVR [ ] Non-ischemic myocardial injury [ ] No additional diagnosis/Not clinically significant [ X ] Other, please specify __Troponin elevation not an KS and not consistent with ACS [ ] Unable to determine MTDD
[2023-03-30 16:35] LABS: Glucose,Whole Blood 142 mg/dL (70-110)
[2023-03-30 20:27] LABS: Glucose,Whole Blood 180 mg/dL (70-110)
[2023-03-30] MEDS: METOPROLOL SUCCINATE (ER) 100 MG TAB.ER.24H PO SCH (22:02)
[2023-03-30] MEDS: WARFARIN 7.5 MG TAB PO SCH (22:03)
[2023-03-30] MEDS: ATORVASTATIN 80 MG TAB PO SCH (22:03)
[2023-03-30] MEDS: LOSARTAN 50 MG TAB PO SCH (22:04)
[2023-03-31 04:32] VITALS: RESP 16
[2023-03-31] MEDS: LEVOTHYROXINE 50 MCG TAB PO SCH (06:15)
[2023-03-31] MEDS: PANTOPRAZOLE 40 MG TABLET PO SCH (06:15)
[2023-03-31 06:29] LABS: Glucose,Whole Blood 199 mg/dL (70-110)
[2023-03-31] MEDS: MULTIVITAMINS, THERA 1 EACH TAB PO SCH (08:24)
[2023-03-31] MEDS: allopurinoL 100 MG TAB PO SCH (08:24)
[2023-03-31] MEDS: SODIUM CHLORIDE 0.9% 1,000 ML IV SCH (08:24)
[2023-03-31] MEDS: METOPROLOL SUCCINATE (ER) 50 MG TAB.ER.24H PO SCH (08:24)
[2023-03-31] MEDS: metFORMIN 500 MG TAB PO SCH (08:24)
[2023-03-31] MEDS: MAGNESIUM OXIDE 400 MG TAB PO SCH (08:25)
[2023-03-31] MEDS: DIGOXIN 250 MCG/ML 2 ML AMP IVP SCH (08:25)
[2023-03-31] MEDS: DAPAGLIFLOZIN PROPANEDIOL 10 MG TABLET PO SCH (08:25)
[2023-03-31 08:35] VITALS: TEMP 97.6
--- NOTE | 2023-03-31 11:12 | P.PN ---
Subjective Progress Note Date: 03/31/23 This is a 67-year-old male with a past medical history significant for permanent atrial fibrillation, hypertension, hyperlipidemia, peripheral arterial disease with previous intervention of the left leg, aortic stenosis and regurgitation with previous aortic valve replacement, congestive heart failure, and cardiomyopathy. Patient follows in the office with Dr. Mendoza. We have been asked to see the patient in consultation for elevated troponins. Patient examined at the bedside. Patient presented to the hospital with a chief complaint of abdominal pain. He also reports increased shortness of breath with exertion. He states he is usually short of breath but it is worse than normal. He reports mild lower extremity edema, usually worse on the left. No chest pain or pressure. No nausea or vomiting. Reports diarrhea, which is chronic for patient. No dizziness or palpitations. It is noted that the patient was notified by the cardiology office via telephone on 03/23/2023 regarding an episode of atrial fibrillation with RVR that was reported from his device on 03/19/2023. The patient denied feeling anything at that time. He told the cardiology office he was moving heavy objects and doing yard work and felt weak and short of breath. The patient received ATP therapy. * EKG reveals atrial fibrillation with RVR * Chest xray cardiomegaly with patchy bibasilar opacities favoring atelectasis * CT abdomen and pelvis revealed no evidence of bowel ejection. Possible focal inflammatory changes or duodenitis. Differential includes infectious and/or inflammatory etiologies. No acute findings otherwise seen on noncontrast CT. * Laboratory data: WBC 13.4. Hemoglobin 11.5. Blood count 315. D-dimer 0.27. INR 2.6. Sodium 138. Potassium 3.9. BUN 28. Creatinine 1.51. Troponin 0.078. ProBNP 2210. * Current home cardiac medications include Lasix 80 mg Wednesday, losartan 50 mg at night, Zaroxolyn 5 mg at night, aspirin 162 mg daily, warfarin 7.5 mg at night, metoprolol succinate 100 mg at night, Lipitor 80 mg at night, Lopid 600 mg twice a day * Most recent echocardiogram obtained in October 2022 revealed ejection fraction 30-35% with AV prosthesis noted, moderate MR, mild TR * Cardiac catheterization history: 2013 revealing mild nonobstructive coronary artery disease 03/29 Patient seen and examined. Patient still remains tachycardic with heart rates in the 120 range. Creatinine has increased up to 1.9. Denies any chest pain or pressure. He was switched to oral diuretics. Admits his abdominal fullness has improved with the diuresis. Blood pressure is borderline 110s to 120s systolic. 03/30 Patient seen and examined. Heart rate still in the 90-110 range. Digoxin was added yesterday. Kidney function is not resulted back yet from today. Denies any chest pain or pressure. States he is stable on his feet. Does not have significant amount of edema. 03/31 Patient is seen today in follow-up. Heart rate is running transitioned to oral dig at same dose. Laboratory reports are not available yet today. Weight is down 1-1/2 kg from yesterday PHYSICAL EXAM: VITAL SIGNS: Reviewed. GENERAL: Well-developed in no acute distress. HEENT: Head is normocephalic. Pupils are equal, round. Sclerae anicteric. Mucous membranes of the mouth are moist. Neck supple. No JVD or thyromegaly LUNGS: Respirations even and unlabored. Lungs diminished at the bases. HEART: Tachycardic. Irregular rate and rhythm. S1 and S2 heard. Soft systolic murmur noted. ABDOMEN: Soft. Nondistended. Nontender. EXTREMITIES: Normal range of motion. No clubbing or cyanosis. Peripheral p ulses intact. Minimal lower extremity edema NEUROLOGIC: Awake and alert. Oriented x 3. ASSESSMENT: Acute kidney injury Acute on chronic congestive heart failure with reduced EF Abnormal troponin, not suggestive of ACS Permanent atrial fibrillation with RVR on admission History of aortic stenosis with bioprosthetic aortic valve replacement Nonischemic cardiomyopathy, 30-35% Mild nonobstructive coronary artery disease, per cardiac catheterization in 2013 Peripheral arterial disease with previous intervention of left lower extremity Hypertension Hyperlipidemia Diabetes PLAN: Patient is cleared for discharge of lab work is stable. Reports are currently pending. Patient to resume Lasix at discharge. May benefit from AV dilia ablation down the road if still having difficulty controlling heart rates. Patient to follow-up with Dr. Petty Mendoza in one week Nurse practitioner note has been reviewed, I agree with the documented findings and plan of care. Patient was seen and examined. Objective - Vital Signs Vital signs: Vital Signs Temp 97.6 F 03/31/23 08:15 Pulse 87 03/31/23 08:15 Resp 16 03/31/23 08:15 BP 121/79 03/31/23 08:15 Pulse Ox 94 L 03/31/23 08:15 FiO2 Intake & Output 03/30/23 03/31/23 03/31/23 18:59 06:59 18:59 Intake Total 500 240 118 Output Total 550 550 200 Balance -50 -310 -82 Weight 105.4 kg Intake: IV 20 Invasive Line 2 20 Oral 480 240 118 Output: Urine 550 550 200 Other: Voiding Method Toilet Toilet Urinal Urinal # Voids 1 1 - Labs CBC & Chem 7: 03/30/23 11:38 03/30/23 11:38 Labs: Abnormal Lab Results - Last 24 Hours (Table) 03/30/23 03/30/23 03/30/23 Range/Units 11:38 11:38 11:38 RBC 4.24 L (4.30-5.90) m/uL PT 21.8 H (9.0-12.0) sec INR 2.2 H (<1.2) Sodium 135 L (137-145) mmol/L Chloride 86 L (98-107) mmol/L Carbon Dioxide 33 H (22-30) mmol/L BUN 66 H (9-20) mg/dL Creatinine 1.93 H (0.66-1.25) mg/dL Glucose 155 H (74-99) mg/dL POC Glucose (mg/dL) (70-110) mg/dL 03/30/23 03/30/23 03/30/23 Range/Units 11:38 11:43 16:32 RBC (4.30-5.90) m/uL PT (9.0-12.0) sec INR (<1.2) Sodium 136 L (137-145) mmol/L Chloride 86 L (98-107) mmol/L Carbon Dioxide 33 H (22-30) mmol/L BUN 65 H (9-20) mg/dL Creatinine 1.92 H (0.66-1.25) mg/dL Glucose 156 H (74-99) mg/dL POC Glucose (mg/dL) 193 H 142 H (70-110) mg/dL 03/30/23 03/31/23 Range/Units 20:10 06:26 RBC (4.30-5.90) m/uL PT (9.0-12.0) sec INR (<1.2) Sodium (137-145) mmol/L Chloride (98-107) mmol/L Carbon Dioxide (22-30) mmol/L BUN (9-20) mg/dL Creatinine (0.66-1.25) mg/dL Glucose (74-99) mg/dL POC Glucose (mg/dL) 180 H 199 H (70-110) mg/dL
[2023-03-31 11:53] LABS: INR 2.1 (<1.2); Prothrombin Time 20.6 sec (9.0-12.0)
[2023-03-31 11:58] LABS: Glucose,Whole Blood 140 mg/dL (70-110)
[2023-03-31 12:07] LABS: ALT 39 U/L (4-49); AST 46 U/L (17-59); African American GFR (CKD) 37 (>60 ml/min/1.73 sqM); Albumin 4.5 g/dL (3.5-5.0); Alkaline Phosphatase 178 U/L (38-126); Anion Gap 12 mmol/L; Blood Urea Nitrogen 68 mg/dL (9-20); Calcium 9.4 mg/dL (8.4-10.2); Carbon Dioxide 31 mmol/L (22-30); Chloride 90 mmol/L (98-107); Glucose 191 mg/dL (74-99); Non-African American GFR(CKD) 32 (>60 ml/min/1.73 sqM); Potassium 3.7 mmol/L (3.5-5.1); Sodium 133 mmol/L (137-145); Total Bilirubin 0.7 mg/dL (0.2-1.3)
[2023-03-31 14:15] VITALS: BP 119/73; PULSE 90
--- NOTE | 2023-03-31 14:30 | P.DS ---
Providers Date of admission: 03/26/23 14:36 Expected date of discharge: 03/31/23 Attending physician: Dagoberto Hook Consults: 03/26/23 08:24 Consult Physician Routine Consulting Provider: Philippe Mendoza Consult Reason/Comments: tachycardia, paced. elevated troponin Do you want consulting provider notified?: Yes Primary care physician: [facility] Course: Chief Complaint: Short of breath This is a pleasant 67-year-old patient who follows Dr. Pelaez. Chronic stable medical conditions include CAD, CHF, diabetes, GERD, hypertension, hy perlipidemia, hypothyroid, colon cancer treated with resection and radiation treatment, hiatal hernia, psoriatic assess, gout,. Patient presents for about one week getting creasing short of breath. No fever no chills. No cough. Patient has chronic left lower extremity swelling. Also has had some abdominal pain for a week. Bowel movement every day. Decreased appetite. Permanent pacemaker was noted in the ER to be having increased heart rate. Pacemaker check was ordered. No chest pain. No dizziness no lightheadedness. March 27: Sitting at the edge of the bed. Family present. Breathing better. No palpitation. IV Lasix. March 28: Breathing better. Sitting at edge of the bed. Heart rate in 1 teens. On IV Lasix and Zaroxolyn. March 29: Seen by cardiology earlier today. Diuretics have been held. Digoxin added. Some bump in creatinine. Family at the bedside. March 30: Sitting at the edge of bed. Heart rate still up. Patient is off Lasix. Extra dose of digoxin. Breathing stable. March 31: Heart rate better controlled. On digoxin. Discussed with patient. Breathing stable. We will have repeat renal blood work done outpatient. Discussed with patient and family the bedside. Cleared by cartilage E for discharge. We'll follow for Dr. Tyler's, his emergency room clinician Discussion and discharge planning more than 35 minutes Past medical history to include: COPD, CAD, CHF, diabetes, GERD, hypertension, hyperlipidemia, psoriasis, thyroid disorder, colon cancer treated with surgery and radiation, PAD, sodium is this, hiatal hernia, peptic ulcer disease, gout, heart valve replacement 2015, pacemaker Social history: Lives alone. Smoked for about 35 years. Stopped in 2006. Alcohol occasionally. Physical examination: VITAL SIGNS: 97.6, 90, 16, 1.9-73, 94% room air GENERAL: Sitting at the edge of the bed EYES: Pupils equal. Conjunctiva normal. HEENT: External appearance of nose and ears normal, oral cavity grossly normal. NECK: JVD not raised; masses not palpable. HEART: Heart sounds irregular; no edema. LUNGS: Respiratory rate normal; clear to auscultation. ABDOMEN: Soft, nontender, liver spleen not palpable, no masses palpable. PSYCH: Alert and oriented x3; mood and affect normal. MUSCULOSKELETAL:No Clubbing/cyanosis;muscles-grossly intact INVESTIGATIONS, reviewed in the clinical context: March 31: INR 2.1 creatinine 2.09 2-D echocardiogram: EF 10-15%. [id number] MR. Bioprosthetic aortic valve March 27: White count 8.3 hemoglobin 11.2 potassium 3.4 BUN 35 creatinine 1.66 White count 13.4 hemoglobin 11.5 platelets 315 sodium 138 potassium 3.9 BUN 28 creatinine 1.51 Troponin I 0.078, 0.066 ProBNP 2210 UA: Protein 2+, Influenza type A, B, RSV, COVID-19: Not detected EKG tracing personally reviewed by me-atrial flutter/tachycardia with a heart rate of 120 Chest x-ray film personally reviewed by me-cardiomegaly. CT abdomen pelvis: No bowel obstruction. Possible inflammatory changes were duodenitis. Assessment and plan: -Atrial fibrillation/atrial tachycardia, uncontrolled with the patient with pacemaker: Better Precipitating CHF Follow with cardiology Telemetry. Toprol XL 100. Digoxin -Acute on chronic congestive heart failure. From systolic dysfunction EF 10- 50%. Euvolemic Lasix held -Chronic kidney disease stage III likely nephrosclerosis Patient's creatinine was 1.86 in 2016 -Troponin leak likely from uncontrolled atrial arrhythmia. Acute coronary syndrome unlikely. -Hypothyroid Synthroid 50 g -Coumadin monitoring Follow with pharmacy -GERD Prilosec 40 mg -Chronic gout Allopurinol. -Hyperlipidemia Lipitor, Lopid -Diabetes mellitus type 2 on oral hypoglycemic Glucophage. Follow Accu-Cheks with sliding scale Disposition: Home Plan - Discharge Summary Discharge Rx Participant: Yes New Discharge Prescriptions: New Dapagliflozin Propanediol [Farxiga] 10 mg PO DAILY #30 tab Metoprolol Succinate (ER) [Toprol XL] 50 mg PO DAILY #30 tab Digoxin [Lanoxin] 62.5 mcg PO DAILY #30 tablet Continue Multivitamin [Men's Multi-Vitamin] 1 tab PO BID Aspirin EC [Ecotrin Low Dose] 162 mg PO DAILY #30 tablet. Omeprazole [PriLOSEC] 40 mg PO DAILY #30 capsule. Furosemide [Lasix] 80 mg PO MOWEFR Warfarin [Coumadin] 7.5 mg PO HS allopurinoL [Zyloprim] 150 mg PO BID Atorvastatin [Lipitor] 80 mg PO HS gemfibroziL [Lopid] 600 mg PO BID Losartan [Cozaar] 50 mg PO HS Magnesium Chloride [Mag64] 128 tab PO DAILY Clotrimazole Cream [Lotrimin Cream] 1 applic TOPICAL DAILY PRN PRN Reason: irritation Levothyroxine Sodium [Synthroid] 50 mcg PO DAILY Magnesium Chloride [Mag64] 64 mg PO HS metFORMIN HCL 500 mg PO DAILY metFORMIN HCL [Glucophage] 1,000 mg PO HS Metoprolol Succinate (ER) [Toprol XL] 100 mg PO HS Changed Potassium Chloride [Klor-Con M20] 20 meq PO DAILY #0 Discontinued metOLazone 5 mg PO HS Discharge Medication List Multivitamin [Men's Multi-Vitamin] 1 tab PO BID 07/12/14 [History] Aspirin EC [Ecotrin Low Dose] 162 mg PO DAILY #30 tablet. 10/11/14 [Rx] Omeprazole [PriLOSEC] 40 mg PO DAILY #30 capsule. 10/11/14 [Rx] Furosemide [Lasix] 80 mg PO MOWEFR 12/03/14 [History] Warfarin [Coumadin] 7.5 mg PO HS 12/03/14 [History] allopurinoL [Zyloprim] 150 mg PO BID 10/08/15 [History] Atorvastatin [Lipitor] 80 mg PO HS 03/26/23 [History] Clotrimazole Cream [Lotrimin Cream] 1 applic TOPICAL DAILY PRN 03/26/23 [History] Levothyroxine Sodium [Synthroid] 50 mcg PO DAILY 03/26/23 [History] Losartan [Cozaar] 50 mg PO HS 03/26/23 [History] Magnesium Chloride [Mag64] 64 mg PO HS 03/26/23 [History] Magnesium Chloride [Mag64] 128 tab PO DAILY 03/26/23 [History] Metoprolol Succinate (ER) [Toprol XL] 100 mg PO HS 03/26/23 [History] gemfibroziL [Lopid] 600 mg PO BID 03/26/23 [History] metFORMIN HCL 500 mg PO DAILY 03/26/23 [History] metFORMIN HCL [Glucophage] 1,000 mg PO HS 03/26/23 [History] Dapagliflozin Propanediol [Farxiga] 10 mg PO DAILY #30 tab 03/31/23 [Rx] Digoxin [Lanoxin] 62.5 mcg PO DAILY #30 tablet 03/31/23 [Rx] Metoprolol Succinate (ER) [Toprol XL] 50 mg PO DAILY #30 tab 03/31/23 [Rx] Potassium Chloride [Klor-Con M20] 20 meq PO DAILY #0 03/31/23 [Rx] Follow up Appointment(s)/Referral(s): Harish Pelaez DO [Primary Care Provider] - 1-2 days (Office will call with appointment time and date. ) Philippe Mendoza MD [STAFF PHYSICIAN] - 04/12/23 11:30 am (at the main office ) Patient Instructions/Handouts: A-fib (Atrial Fibrillation) (DC), Acute Coronary Syndrome (DC) Activity/Diet/Wound Care/Special Instructions: bmp/inr - 5 days
== END 2023-03-31 14:56 | disposition home health service (06) | DRG 391 ==
LOC: EC 03:53 → 3SCARD 08:24 → OBSVTOIN 14:36
PROVIDERS: ADMIT Hospitalist; ATTEND Hospitalist
DX: K29.80 Duodenitis without bleeding (principal); I50.23 Acute on chronic systolic (congestive) heart failure; I13.0 Hypertensive heart and chronic kidney disease with heart failure and stage 1 through stage 4 chronic kidney disease, or unspecified chronic kidney disease; I47.1 Supraventricular tachycardia; I48.21 Permanent atrial fibrillation; J98.11 Atelectasis; N17.9 Acute kidney failure, unspecified; I42.8 Other cardiomyopathies; K44.9 Diaphragmatic hernia without obstruction or gangrene; E11.22 Type 2 diabetes mellitus with diabetic chronic kidney disease; E11.51 Type 2 diabetes mellitus with diabetic peripheral angiopathy without gangrene; E03.9 Hypothyroidism, unspecified; D72.829 Elevated white blood cell count, unspecified; E78.5 Hyperlipidemia, unspecified; I25.10 Atherosclerotic heart disease of native coronary artery without angina pectoris; I34.0 Nonrheumatic mitral (valve) insufficiency; I35.0 Nonrheumatic aortic (valve) stenosis; R77.8 Other specified abnormalities of plasma proteins; J44.9 Chronic obstructive pulmonary disease, unspecified; N18.30 Chronic kidney disease, stage 3 unspecified; K21.9 Gastro-esophageal reflux disease without esophagitis; J45.909 Unspecified asthma, uncomplicated; Z60.2 Problems related to living alone; Z95.3 Presence of xenogenic heart valve; Z79.01 Long term (current) use of anticoagulants; Z85.038 Personal history of other malignant neoplasm of large intestine; Z92.3 Personal history of irradiation; M1A.9XX0 Chronic gout, unspecified, without tophus (tophi); L40.9 Psoriasis, unspecified; Z87.11 Personal history of peptic ulcer disease; X50.0XXA Overexertion from strenuous movement or load, initial encounter; Z79.82 Long term (current) use of aspirin; Z79.84 Long term (current) use of oral hypoglycemic drugs; Z79.890 Hormone replacement therapy; Z79.899 Other long term (current) drug therapy; Z82.49 Family history of ischemic heart disease and other diseases of the circulatory system; Z95.810 Presence of automatic (implantable) cardiac defibrillator; Z90.49 Acquired absence of other specified parts of digestive tract
CPT/HCPCS: 36415; 71046; 74176; 80048; 80053; 80061; 80069; 81001; 82150; 83605; 83690; 83880; 84484; 85025; 85379; 85610; 87636; 93005; 93306; 94760; 99285